=== PATIENT | female | born 1950 | race Caucasian/White ===

== ENCOUNTER → 2016-10-29 | Outpatient (CLI) | payer OTHER, MEDICARE ==
[~2016-10-29] MED LIST: ACET-1256 PO; AMOX500C3 PO; APIX1TAB3 PO; ASPI81TA21 PO; CLTP PO; DILT120C43 PO; LSX20 PO; MULT-513 PO; PRAV20TA PO; TRAM-10 PO; TSSP PO; WARF1TAB6 PO
--- NOTE | 2016-10-29 13:55 | MAMMOGRAPHY REPORT ---
BILATERAL DIGITAL SCREENING MAMMOGRAM WITH CAD: 10/29/2016 CLINICAL HISTORY: Routine screening. TECHNIQUE: Current study was also evaluated with a Computer Aided Detection (CAD) system. Bilateral CC and MLO and right XCCL views were obtained. COMPARISON: Comparison is made to exams dated: 10/28/2015 mammogram, 10/23/2014 mammogram, 08/22/2013 mamm ogram, 08/21/2012 mammogram, 08/19/2011 mammogram, and 08/17/2010 mammogram - [facility] BREAST COMPOSITION: The tissue of both breasts is heterogeneously dense, which may obscure small mas ses. FINDINGS: No suspicious masses, calcifications, or areas of architectural distortion are noted in ei ther breast. There has been no significant interval change compared to prior exams. Bilateral benign vascular calcifications are again noted. IMPRESSION: ACR BI-RADS CATEGORY 2: BENIGN There is no mammographic evidence of malignancy. A 1 year screening mammogram is recommended. The pa tient will receive written notification of the results. Approximately 10% of breast cancers are not detected with mammography. A negative mammographic report should not delay biopsy if a clinically suggestive mass is present. Elizabeth Espinoza M.D. ah/:10/29/2016 09:03:55 Edge Cutting Machine Operator: Hector RODRIGUEZ(R)(M), [facility] letter sent: Normal 1/2 BI-RADS Code: ACR BI-RADS Category 2: Benign
== END | disposition home or self-care (01) ==
LOC: C.MAMM 08:30
PROVIDERS: ATTEND Family Medicine
DX: Z12.31 Encounter for screening mammogram for malignant neoplasm of breast (principal)

== ENCOUNTER 2017-02-18 10:19 | Emergency (ER) | payer OTHER, MEDICARE ==
[~2017-02-18] VITALS: Ht 162.6 cm; Wt 60.0 kg
[~2017-02-18 10:19] MED LIST changes: -APIX1TAB3 PO; -DILT120C43 PO
[2017-02-18 10:30] VITALS: TEMP 36.8; Ht 162.6 cm; Wt 60.0 kg
[2017-02-18] MEDS ORDERED: DILT120C43 PO (10:43)
[2017-02-18] MEDS ORDERED: APIX1TAB3 PO (10:43)
[2017-02-18] MEDS ORDERED: KETOROLAC TROMETHAMINE 60 MG/2 ML VIAL IM STA (11:13)
[2017-02-18] MEDS ORDERED: TRAMADOL HCL 50 MG TAB PO STA (11:13)
--- NOTE | 2017-02-18 11:42 | DIAGNOSTIC IMAGING REPORT ---
LEFT KNEE 3 VIEWS HISTORY: Left knee pain. COMPARISON: None. FINDINGS: There is no fracture or dislocation. Mild thickening at the quadriceps tendon. No radiopaque foreign bodies. No significant knee effusion. IMPRESSION: 1. No fracture or dislocation within the left knee. 2. Mild thickening at the quadriceps tendon. This may represent a tendinopathy. Electronically signed by: Femi Russ M.D. 02/18/2017 11:40 AM Dictated Date/Time: 02/18/2017 11:39 AM
[2017-02-18] MEDS ORDERED: TRAM-10 PO (12:45)
--- NOTE | 2017-02-18 12:46 | EMERGENCY ROOM VISIT NOTE ---
ED Visit Note First contact with patient: 11:00 CHIEF COMPLAINT: Left knee pain this morning HISTORY OF PRESENT ILLNESS: Patient is a 67-year-old white female who presents to the emergency department for evaluation of left knee pain. She states that the pain woke her overnight. It was severe. She could not straighten the knee due to pain. She did not take any medications, nor apply any ice or heat. She had an elastic sleeve that she put on for a short time, but she states that it felt like the pain was worse and therefore she took it off. She reports she fell and landed on the flexed left knee at the beginning of the month, had a small abrasion, but otherwise was not particularly bothered by that injury. She notes pain over the entire knee, she is unable to localize it. It is worse when she tries to straighten or when she bears weight. She is able to ambulate , but she is limping. She rates her pain a 9/10. REVIEW OF SYSTEMS: Review of systems as per HPI. All other systems reviewed were negative. At least 6 systems reviewed. PMH: Electronic medical records are reviewed and summarized as above/below. See Problem List. SOCIAL HISTORY: Patient lives at home with her family. She is retired. Nonsmoker, denies alcohol use. PHYSICAL EXAM: Vital Signs: Reviewed Nurse's notes. MENTAL STATUS: Well- appearing, slightly uncomfortable 67-year-old white female was awake and alert and laying on the gurney in mild distress due to her knee pain. KNEE: Examination of the left knee notes mild generalized swelling, no erythema, abrasions or knee joint effusion palpable. There is no peripatellar tenderness , slight crepitus with range of motion. No reproducible joint line tenderness. She has discomfort when she extends fully, but is able to do so. She can actively flex to roughly 90 before she has pain. There is no gross ligamentous instability appreciated. Calf is soft and nontender. No popliteal fullness appreciated. Left lower extremity is neurovascularly intact. The patient walks with an antalgic gait. EMERGENCY DEPARTMENT COURSE: Patient was given an ice pack, given Toradol 60 mg IM and Ultram 50 mg orally. The x-rays were obtained and were largely unremarkable. The patient reported some relief of her pain on reassessment. X- ray findings were reviewed with her. She rated her pain a 1/10 at the time of discharge. She declined a knee immobilizer. She has crutches at home that she can use. She was wrapped with an Paulo wrap for support. She was encouraged to use Tylenol for discomfort and was given a prescription for tramadol. She has been told to avoid NSAIDs due to her valvular heart disease, she takes a dose of Aleve sparingly. She is established with orthopedics, and was encouraged to follow-up with them for further care and evaluation if her symptoms are not improving. Differential diagnoses entertained included sprain, meniscal tear, degenerative joint disease, gout/pseudogout, among others. LEFT KNEE 3 VIEWS HISTORY: Left knee pain. COMPARISON: None. FINDINGS: There is no fracture or dislocation. Mild thickening at the quadriceps tendon. No radiopaque foreign bodies. No significant knee effusion. IMPRESSION: 1. No fracture or dislocation within the left knee. 2. Mild thickening at the quadriceps tendon. This may represent a tendinopathy. Patient was reviewed in the [facility] Prescription Drug Monitoring Program, and there were no red flags noted. Blood pressure screening : Patient was found to have normal blood pressure on screening and does not require follow-up. Medication reconciliation: I attest that I have personally reviewed the patient' s current medication list. Problem List Medical Problems: (1) Acute respiratory failure Status: Resolved (2) Anemia Status: Resolved (3) Asthma Status: Chronic (4) Atrial fibrillation Status: Chronic (5) CHF (congestive heart failure) Permanent Comment: valvular heart disease; LVEF 50% by echo Status: Chronic (6) Dyslipidemia Status: Chronic (7) Pneumonia Status: Resolved (8) Valvular heart disease Permanent Comment: aortic regurgitation, mitral regurgitation, tricuspid regurgitation Status: Chronic Surgical Problems: (1) Status post aortic valve replacement Permanent Comment: repeat AVR with bioprosthetic valve by Dr. Drummond [facility] 02/06/12 Status: Resolved (2) Status post cholecystectomy Status: Chronic (3) Status post Ross procedure Permanent Comment: 2000 Status: Resolved Current/Historical Medications Scheduled Amoxicillin (Amoxil), 2,000 MG PO UD Apixaban (Eliquis), 5 MG PO BID Aspirin Enteric Coated (Ecotrin Or Generic), 81 MG PO DAILY Calcium/Vitamin D (Caltrate 600 Plus *), 1 TAB PO BID Diltiazem Hcl Coated Beads (Cartia Xt), 120 MG PO DAILY Multivitamins/Minerals (Mvi With Minerals), 1 TAB PO DAILY Pravastatin (Pravachol ), 40 MG PO HS Scheduled PRN Tramadol (Ultram), 1-2 TAB PO Q4H PRN for Pain Allergies Coded Allergies: Metoprolol (Verified Allergy, Intermediate, "PASSED OUT" AND LITTLE TROUBLE BREATHING, 02/18/17) Amiodarone (Unverified Allergy, Unknown, UNKNOWN, 02/18/17) Oxycodone (Verified Adverse Reaction, Intermediate, NAUSEA VOMITING, ) Propoxyphene (Verified Adverse Reaction, Intermediate, NAUSEA AND VOMITING , 02/18/17) Vital Signs Date Time Temp Pulse Resp B/P (MAP) Pulse Ox O2 Delivery O2 Flow Rate FiO2 02/18/17 13:00 84 20 138/75 98 Room Air 02/18/17 11:48 71 20 119/75 98 Room Air 02/18/17 10:30 36.8 69 18 126/75 96 Room Air Medications Administered Medications (Trade) Dose Ordered Sig/Jason Route Start Time Stop Time Status Last Admin Dose Admin Ketorolac Tromethamine (Toradol Inj) 60 mg NOW STAT IM 02/18/17 11:13 02/18/17 11:15 DC 02/18/17 11:47 60 MG Tramadol HCl (Ultram Tab) 50 mg NOW STAT PO 02/18/17 11:13 02/18/17 11:15 DC 02/18/17 11:43 50 MG Departure Information Impression Primary Impression: Left knee pain Prescriptions Tramadol (Ultram) 50 Mg Tab 1-2 TAB PO Q4H Y for Pain, #30 TAB For Initial Treatment Prov: Sandy Julio PA 02/18/17 Referrals Zuleyka Posada M.D. (PCP) Patient Instructions My [facility] Additional Instructions DO NOT drive, drink alcohol, operate machinery, or perform dangerous activities today. You were given medications in the ER that can affect your ability to safely function or operate a vehicle. Tramadol (Ultram) 50mg: Take 1-2 pills every four hours for breakthrough pain. Avoid alcohol, operating machinery or dangerous equipment, working on ladders or roofs, DRIVING, or situations where being under the influence may be dangerous. It is recommended to use an [id number] stool softener such as Colace, 100mg twice daily while taking this medication to avoid constipation. Acetaminophen(Tylenol) may be used for fever or pain. Use 1000mg every six hours as needed. Avoid using more than 3000mg in a 24 hour period. This medication can be taken if you need to drive, work, or perform activities which may be dangerous when taking narcotic pain medication. Ice compresses for 20 minutes at a time four times daily for 2-3 days. Use the Paulo wrap and your crutches as instructed. Rest and elevate your injury. Continue current medications. Return to the ER immediately for any numbness, tingling, severe pain, extreme swelling in the extremity or as needed. Follow-up with your family physician or with [facility] next week if your symptoms are not improving. Problem Qualifiers Primary Impression: Left knee pain Chronicity: acute Qualified Codes: M25.562 - Pain in left knee
--- NOTE | 2017-02-18 12:47 | EMERGENCY ROOM VISIT NOTE ---
ED Visit Note First contact with patient: 11:00 Patient seen and evaluated bedside after discussion with the nurse practitioner. Patient agreeable with plan. Isolated pain to the knee, no other signs or symptoms to suggest DVT, cellulitis, compartment syndrome. Patient agreeable with plan as discussed with physician assistant librarian, follow-up with orthopedics as an outpatient.
[2017-02-18 13:00] VITALS: BP 138/75; PULSE 84; O2SAT 98
== END 2017-02-18 13:05 | disposition home or self-care (01) ==
LOC: C.EDB 10:20
DX: M25.562 Pain in left knee (principal); I48.91 Unspecified atrial fibrillation; E78.5 Hyperlipidemia, unspecified; I50.9 Heart failure, unspecified; I51.9 Heart disease, unspecified; D64.9 Anemia, unspecified; J45.909 Unspecified asthma, uncomplicated; I35.8 Other nonrheumatic aortic valve disorders; Z79.82 Long term (current) use of aspirin; Z79.899 Other long term (current) drug therapy; Z90.49 Acquired absence of other specified parts of digestive tract; Z88.5 Allergy status to narcotic agent; Z88.8 Allergy status to other drugs, medicaments and biological substances

== ENCOUNTER → 2017-04-11 | Outpatient (CLI) | payer OTHER, MEDICARE ==
[~2017-04-11] MED LIST changes: -ACET-1256 PO; +APIX1TAB3 PO; +DILT120C43 PO; -LSX20 PO; -TSSP PO; -WARF1TAB6 PO
[2017-04-11 10:26] LABS: CHOLESTEROL/HDL RATIO 1.8
== END | disposition home or self-care (01) ==
LOC: C.LAB1850 08:00
PROVIDERS: ATTEND Internal Medicine Cardiovascular Disease
DX: E78.00 Pure hypercholesterolemia, unspecified (principal)

== ENCOUNTER 2017-06-10 09:19 | Emergency (ER) | payer OTHER, MEDICARE ==
[~2017-06-10] VITALS: Ht 162.6 cm; Wt 63.0 kg
[2017-06-10 09:20] VITALS: TEMP 36.9; O2SAT 99; Ht 162.6 cm; Wt 63.0 kg
[2017-06-10] MEDS ORDERED: SODIUM CHLORIDE 0.9% 1000ML 500 ML IV STA (09:38)
--- NOTE | 2017-06-10 09:46 | EMERGENCY ROOM VISIT NOTE ---
History Report prepared by Ac: Adrien Arias Under the Supervision of: Dr. Garett Ocampo M.D. First contact with patient: 09:35 Chief Complaint: RAPID HEART RATE Stated Complaint: RAPID HEART RATE, N/V/D History of Present Illness The patient is a 67 year old female who presents to the Emergency Room with complaints of a persistent rapid heart rate that she noticed when she woke up this morning at 0200, 7.5 hours prior to arrival. The patient states that she was also nauseated. She has a history of atrial fibrillation and is on Eliquis daily. She felt fine before she went to bed last night. The patient denies any tarry stools. 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 A total of 10 systems reviewed and were otherwise negative. Past Medical & Surgical Medical Problems: (1) Acute respiratory failure (2) Anemia (3) Asthma (4) Atrial fibrillation (5) CHF (congestive heart failure) (6) Dyslipidemia (7) Pneumonia (8) Valvular heart disease Surgical Problems: (1) Status post aortic valve replacement (2) Status post cholecystectomy (3) Status post Ross procedure Old medical records were reviewed. Nurse's notes were reviewed and I agree with. Family History Cancer Hypertension Social History Smoking Status: Never Smoker Alcohol Use: none Marital Status: Housing Status: lives with family Occupation Status: employed Current/Historical Medications Scheduled Amoxicillin (Amoxil), 2,000 MG PO UD Apixaban (Eliquis), 5 MG PO BID Aspirin Enteric Coated (Ecotrin Or Generic), 81 MG PO DAILY Calcium Carbonate-Vitamin D (Calcium 600 + D), 1 TAB PO BID Diltiazem Hcl Coated Beads (Cartia Xt), 120 MG PO DAILY Multivitamins/Minerals (Mvi With Minerals), 1 TAB PO DAILY Pravastatin Sodium (Pravachol), 40 MG PO DAILY Scheduled PRN Tramadol (Ultram), 1-2 TAB PO Q4H PRN for Pain Allergies Coded Allergies: Metoprolol (Verified Allergy, Intermediate, "PASSED OUT" AND LITTLE TROUBLE BREATHING, 06/10/17) Amiodarone (Unverified Allergy, Unknown, UNKNOWN, 06/10/17) Oxycodone (Verified Adverse Reaction, Intermediate, NAUSEA VOMITING, ) Propoxyphene (Verified Adverse Reaction, Intermediate, NAUSEA AND VOMITING , 06/10/17) Physical Exam Vital Signs Date Time Temp Pulse Resp B/P (MAP) Pulse Ox O2 Delivery O2 Flow Rate FiO2 06/10/17 11:00 85 16 134/78 99 Room Air 06/10/17 09:41 82 06/10/17 09:39 70 06/10/17 09:20 36.9 76 20 131/81 99 Room Air 06/10/17 09:20 99 Room Air 06/10/17 09:20 99 Room Air Physical Exam General: Non-ill appearing middle aged female in no acute distress. HEENT: Normal cephalic atraumatic. Pupils are equal round and reactive to light. Extraocular movements are intact. Oropharynx is pink with moist mucous membranes. No swelling of the mouth lips or tongue. Neck: Supple with a midline trachea. No meningeal signs or stiffness, no JVD or bruits. No Stridor. Chest: Clear to auscultation bilaterally. No wheezes or rhonchi. No increased work of breathing. Heart: Non-Tachycardic regular rate and irregularly irregular rhythm. Abdomen: Soft nontender, nondistended without rebound guarding or rigidity. Extremities: No cyanosis clubbing or edema. No calf tenderness or assymetry Spine/Back. Non tender to palpation. No CVA tenderness Skin: Good turgor without rashes. Neurologic exam: Cranial nerves two through 12 are intact. Motor and sensation are intact and symmetrical throughout. Medical Decision & Procedures ER Provider Diagnostic Interpretation: Radiology results as stated below per my review and radiologist interpretation: CHEST ONE VIEW PORTABLE HISTORY: Atypical CHEST PAIN COMPARISON: Chest 05/13/2014. FINDINGS: The heart remains mildly enlarged. Poststernotomy changes. Mild interstitial thickening which is likely chronic. No focal lung consolidations. No evidence for pulmonary edema. IMPRESSION: Stable mild cardiomegaly and interstitial thickening which is likely chronic. Electronically signed by: Femi Russ M.D. 06/10/2017 10:01 AM Dictated Date/Time: 06/10/2017 9:55 AM Laboratory Results 06/10/17 09:50 Red Blood Count 4.01, Mean Corpuscular Volume 93.5, Mean Corpuscular Hemoglobin 32.4, Mean Corpuscular Hemoglobin Concent 34.7, Mean Platelet Volume 9.9, Neutrophils (%) (Auto) 89.5, Lymphocytes (%) (Auto) 6.9, Monocytes (%) (Auto) 2.8, Eosinophils (%) (Auto) 0.4, Basophils (%) (Auto) 0.2, Neutrophils # (Auto) 9.72, Lymphocytes # (Auto) 0.75, Monocytes # (Auto) 0.30, Eosinophils # (Auto) 0.04, Basophils # (Auto) 0.02 06/10/17 09:50 Test 06/10/17 09:50 06/10/17 09:53 White Blood Count 10.85 K/uL (4.8-10.8) Red Blood Count 4.01 M/uL (4.2-5.4) Hemoglobin 13.0 g/dL (12.0-16.0) Hematocrit 37.5 % (37-47) Mean Corpuscular Volume 93.5 fL (80-100) Mean Corpuscular Hemoglobin 32.4 pg (25-34) Mean Corpuscular Hemoglobin Concent 34.7 g/dl (32-36) Platelet Count 171 K/uL (130-400) Mean Platelet Volume 9.9 fL (7.4-10.4) Neutrophils (%) (Auto) 89.5 % Lymphocytes (%) (Auto) 6.9 % Monocytes (%) (Auto) 2.8 % Eosinophils (%) (Auto) 0.4 % Basophils (%) (Auto) 0.2 % Neutrophils # (Auto) 9.72 K/uL (1.4-6.5) Lymphocytes # (Auto) 0.75 K/uL (1.2-3.4) Monocytes # (Auto) 0.30 K/uL (0.11-0.59) Eosinophils # (Auto) 0.04 K/uL (0-0.5) Basophils # (Auto) 0.02 K/uL (0-0.2) RDW Standard Deviation 45.4 fL (36.4-46.3) RDW Coefficient of Variation 13.3 % (11.5-14.5) Immature Granulocyte % (Auto) 0.2 % Immature Granulocyte # (Auto) 0.02 K/uL (0.00-0.02) Anion Gap 5.0 mmol/L (3-11) Est Creatinine Clear Calc Drug Dose 54.1 ml/min Estimated GFR () 80.5 Estimated GFR (Non- 69.4 BUN/Creatinine Ratio 25.2 (10-20) Calcium Level 9.1 mg/dl (8.5-10.1) Total Bilirubin 0.6 mg/dl (0.2-1) Direct Bilirubin 0.2 mg/dl (0-0.2) Aspartate Amino Transf (AST/SGOT) 24 U/L (15-37) Alanine Aminotransferase (ALT/SGPT) 21 U/L (12-78) Alkaline Phosphatase 116 U/L (45-117) Total Protein 7.6 gm/dl (6.4-8.2) Albumin 4.0 gm/dl (3.4-5.0) Lipase 109 U/L (73-393) Thyroid Stimulating Hormone (TSH) 0.418 uIu/ml (0.300-4.500) Bedside Troponin I < 0.030 ng/ml (0-0.045) Laboratory studies as stated above per my review. Medications Administered Medications (Trade) Dose Ordered Sig/Jason Route Start Time Stop Time Status Last Admin Dose Admin Sodium Chloride 500 ml @ 999 mls/hr Q31M STAT IV 06/10/17 09:38 06/10/17 10:08 DC 06/10/17 09:38 999 MLS/HR ECG Indication: tachycardia Rate (beats per minute): 77 Rhythm: atrial fibrillation Findings: no acute ischemic change Comparison ECG Date: 02/22/2015 Change: Lateral T-wave abnormalities have improved. Patient's electrocardiogram interpreted by me. ED Course 0937: Past medical records reviewed. The patient was evaluated in room A10, and a complete history and physical examination were performed. 0938: Ordered Sodium Chloride 500 mL @ 999 mL/hr IV. 1000: I checked on the patient at this time she is doing well. 1057: The patient is stable and resting in bed. 1118: Upon reevaluation, the patient is feeling well. I discussed the results and treatment plan with her. She verbalized agreement of the treatment plan. The patient was discharged home. Medical Decision Differential Diagnosis includes; A-fib, arrhythmia, acute coronary syndrome, CHF , electrolyte or metabolic abnormality. This patient comes in as described above she has a history of chronic A. fib and is on anticoagulation she felt like her heart was fast last night and it was in the 90s. She had no chest pain syncope presyncope shortness of breath or any other symptoms she feels well at present she had some nausea vomiting diarrhea. IV access established. EKG shows rate controlled A. fib without ischemic change.s she has no acute electrolyte or metabolic abnormality. She has nothing to suggest acute coronary syndrome and her cardiac biomarkers are not elevated. chest x-ray was unremarkable without any evidence to suggest heart failure, pneumonia, or pneumothorax. She is feeling better and would like to be discharged to home. She should rest and drink plenty of fluids. It may have been that this was related to dehydration. She denies that she missed any medications. She follow with her doctor Tuesday for recheck or return here over the weekend if symptoms worsen. The patient and her are happy the plan and she was discharged to home. Impression Primary Impression: Palpitations Additional Impression: A-fib Scribe Attestation The scribe's documentation has been prepared under my direction and personally reviewed by me in its entirety. I confirm that the note above accurately reflects all work, treatment, procedures, and medical decision making performed by me. Departure Information Dispostion Home / Self-Care Referrals Zuleyka Posada M.D. (PCP) Forms HOME CARE DOCUMENTATION FORM, IMPORTANT VISIT INFORMATION, WORK / SCHOOL INSTRUCTIONS Patient Instructions My [facility] Problem Qualifiers
--- NOTE | 2017-06-10 10:02 | DIAGNOSTIC IMAGING REPORT ---
CHEST ONE VIEW PORTABLE HISTORY: Atypical CHEST PAIN COMPARISON: Chest 05/13/2014. FINDINGS: The heart remains mildly enlarged. Poststernotomy changes. Mild interstitial thickening which is likely chronic. No focal lung consolidations. No evidence for pulmonary edema. IMPRESSION: Stable mild cardiomegaly and interstitial thickening which is likely chronic. Electronically signed by: Femi Russ M.D. 06/10/2017 10:01 AM Dictated Date/Time: 06/10/2017 9:55 AM
[2017-06-10 10:04] LABS: BASO % 0.2 %; BASO ABS # 0.02 K/uL (0-0.2); EOS % 0.4 %; EOS ABS # 0.04 K/uL (0-0.5); HEMATOCRIT 37.5 % (37-47); IG# 0.02 K/uL (0.00-0.02); LYMPH % 6.9 %; LYMPH ABS # 0.75 K/uL (1.2-3.4); MEAN CELL VOLUME 93.5 fL (80-100); MEAN CORPUSCULAR HEMOGLOBIN 32.4 pg (25-34); MEAN CORPUSCULAR HGB CONC 34.7 g/dl (32-36); MEAN PLATELET VOLUME 9.9 fL (7.4-10.4); MONO % 2.8 %; NEUT % 89.5 %; NEUT ABS # 9.72 K/uL (1.4-6.5); PLATELET COUNT 171 K/uL (130-400); RED CELL DISTRIBUTION WIDTH CV 13.3 % (11.5-14.5); RED CELL DISTRIBUTION WIDTH SD 45.4 fL (36.4-46.3); WHITE BLOOD COUNT 10.85 K/uL (4.8-10.8)
[2017-06-10] MEDS ORDERED: PRAV40TA PO (10:23)
[2017-06-10] MEDS ORDERED: CALC-20 PO (10:23)
[2017-06-10 10:25] LABS: CALCIUM 9.1 mg/dl (8.5-10.1); CREATININE 0.86 mg/dl (0.60-1.20); POTASSIUM 3.6 mmol/L (3.5-5.1)
[2017-06-10 11:00] VITALS: BP 134/78; PULSE 85; O2SAT 99
[2017-06-10 11:05] LABS: TOTAL PROTEIN 7.6 gm/dl (6.4-8.2)
== END 2017-06-10 11:35 | disposition home or self-care (01) ==
LOC: C.EDB 09:20 → C.EDA 11:35
DX: R00.2 Palpitations (principal); I48.91 Unspecified atrial fibrillation; D64.9 Anemia, unspecified; J45.909 Unspecified asthma, uncomplicated; I50.9 Heart failure, unspecified; E78.5 Hyperlipidemia, unspecified; Z87.01 Personal history of pneumonia (recurrent); I38 Endocarditis, valve unspecified; Z95.2 Presence of prosthetic heart valve; Z80.9 Family history of malignant neoplasm, unspecified; Z82.49 Family history of ischemic heart disease and other diseases of the circulatory system; Z79.01 Long term (current) use of anticoagulants; Z79.899 Other long term (current) drug therapy

== ENCOUNTER 2024-03-19 07:43 | Inpatient (IN) ==
--- NOTE | 2024-03-19 08:11 | Emergency Department Note ---
Impression & Plan Rectal bleeding, Abdominal cramping, Colitis, Coagulopathy ED Provider Note NAME: NOE ROQUE AGE: 74 SEX: F : 1950 ARRIVES VIA: Walk-In INFORMANT: [Patient] ED PROVIDER(S): [Agustin Silva MD] CHIEF COMPLAINT: Rectal bleeding HISTORY OF PRESENT ILLNESS: The patient is a 74-year-old female who states that 2 weeks ago, she started with a cough and some upper respiratory congestion. She saw her doctor's office and her COVID test was negative. She was told that her illness was likely viral. 5 days ago, the patient called her doctor's office again as she was not any better. She was prescribed Augmentin. Within 1 dose of Augmentin, the patient had diarrhea. She was then switched to amoxicillin twice a day. The patient states that she continued to have some looser stool but things were better over the weekend. This morning, she began having liquidy stool and the last several bouts of diarrhea were mixed with bright red blood. She has some lower crampy abdominal pain that she thinks may be gas pain. No fever, no vomiting although she has noticed some nausea. The patient states that she believes that the respiratory part of things seems to be improving as she has not coughed in about 12 to 24 hours. Of note, the patient has a history of A-fib, she is on Eliquis. PMHx/PSHx/Social Hx: See Below PHYSICAL EXAM: GENERAL: Patient is in no acute distress. HEENT: No acute trauma, normocephalic atraumatic, mucous membranes dry, no nasal congestion. NECK: No stridor, no adenopathy, no meningismus, trachea is midline. LUNGS: A few scattered wheezes heard, no respiratory distress. No crackles. HEART: 3/6 systolic murmur, mildly tachycardic. Slightly irregular rhythm. ABDOMEN: Soft, bowel sounds are hyperactive. She is mildly diffusely tender to the lower abdomen bilaterally. There is no distention. EXTREMITIES: No cyanosis, full range of motion of all the joints without pain or difficulty. NEUROLOGIC: Oriented x 3, no acute motor or sensory deficits, no focal weakness. SKIN: No jaundice, no diaphoresis. DIFFERENTIAL DIAGNOSIS: Medication reaction, colitis, diverticulitis, coagulopathy, anemia, C. difficile colitis, among others. EMERGENCY DEPARTMENT PROCEDURES: MEDICAL DECISION MAKING: There is no leukocytosis or concerning anemia. There is a normal platelet count. No coagulopathy. Potassium slightly low but not in need of emergent correction. No renal failure. No concerning liver enzyme elevation. No evidence for pancreatitis. Urinalysis does not show infection or hematuria. Stool BioFire testing was negative. Stool C. difficile testing was negative. Chest x-ray did not show pneumonia or pneumothorax. Abdominal and pelvis CT showed colitis. On exam, the patient was not toxic or febrile. She complained of some occasional abdominal cramping. The patient received IV saline, 1 L. She was given IV Tylenol for pain. The patient is on Eliquis, she presents with rectal bleeding. She was found to have colitis by CT imaging. Given the coagulopathy, given the rectal bleeding and colitis findings, hospitalization is indicated. I spoke with the patient and case management. The on-call hospitalist was consulted. Currently, the cause for her colitis is unclear. Prior/Outside records/notes reviewed: None ECG per my interpretation: Indication was tachycardia. The ECG shows what appears to be atrial fibrillation with a rate of 99. There is some diffuse nonspecific ST change. There is no acute ST elevation. There is poor R wave progression. No PVCs. The QTc is 415. Continuous Cardiac Monitoring per my interpretation: An order was placed for continuous cardiac monitoring. The monitor shows a rate of 101 with atrial fibrillation. Imaging/x-ray results per my interpretation: Chest x-ray does not show mediastinal widening, pneumonia or pneumothorax. Chronic Medical/Social conditions affecting care: Advanced age, history of Eliquis use. Care/Management discussed with: Case management, the on-call hospitalist. Level of care consideration(s): After review of the information above and other included data: --I believe the patient requires escalation of care to admission DISPOSITION: Admission Past Med/Surg History Problem List (Updated 03/19/24 @ 14:23 by Agustin Silva MD) Coagulopathy (Acute) Colitis (Acute) Abdominal cramping (Acute) Rectal bleeding (Acute) URI (upper respiratory infection) Ischemic colitis H/O tricuspid valve annuloplasty 2010 and 2013 Mild tricuspid regurgitation (Acute) Left knee pain (Acute) History of prosthetic aortic valve Aortic insufficiency (Acute) Need for SBE (subacute bacterial endocarditis) prophylaxis Aortic valvular disorder Pulmonary valve disorder Hypercholesterolemia PAF (paroxysmal atrial fibrillation) (Acute) follows w/ Dr Rangel; last visit 02/2023 Medical History Osteoarthritis low back Amiodarone pulmonary toxicity hx Surgical History History of esophagogastroduodenoscopy (EGD) Hx of colonoscopy History of cardiac radiofrequency ablation ~2002 Hx of aortic aneurysm repair 04/2014 [facility] Hx of cholecystectomy (2008) H/O aortic root repair H/O pulmonic valve replacement 2010 and 2013 S/P tonsillectomy History of open heart surgery 2000 S/P carpal tunnel release Family History Father Myocardial infarction Mother Stomach cancer Graves disease Denies family history of Ovarian cancer Prostate cancer Breast cancer Colorectal cancer Social History Smoking Status: Never smoker Tobacco Type: Cigarettes Age Started Using Tobacco: 15; Age Quit Using Tobacco: 21; packs per day: 0.5; Second Hand Exposure: No; Do You Dip or Chew Tobacco: No; Hx Alcohol Use: No Hx Substance Use: No Preferred Language: Czech Communication Ability: Effective Visual Impairment: No Limitations Hearing Ability: Normal News Operations Manager Required: No Beliefs That Will Affect Care: None marital status: Current Living Situation: Spouse current occupational status: retired 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 Feels Safe at Home: Yes Childhood Exposure to Second-Hand Smoke: Yes Diet: regular Dental Care, Regularly: Yes Physical Activity Frequency: Daily Physical Activity Frequency Comment: 2.4 MILES EVERYDAY WALKING, takes her about 1 hour Seatbelt Use: always Sunscreen Use: Yes (sometimes ) Assistive Devices: Glasses Allergies Allergies Allergy/AdvReac Type Severity Reaction Status Date / Time amiodarone Allergy Unknown ACUTE RESP Verified 03/09/24 10:54 FAILURE metoprolol AdvReac Intermediate "PASSED Verified 03/09/24 10:54 OUT" AND LITTLE TROUBLE BREATHING oxycodone AdvReac Intermediate NAUSEA Verified 03/09/24 10:54 VOMITING propoxyphene AdvReac Intermediate NAUSEA AND Verified 03/09/24 10:54 VOMITING Home Meds Home Medications Medication Instructions Recorded Confirmed calcium 600 mg (as 1 tab PO BID 02/21/19 03/19/24 carbonate)-vitamin D3 5 mcg (200 unit) tablet multivitamin with minerals 1 tab PO TID 10/24/19 03/19/24 (Hair,Skin and Nails tablet) aspirin 81 mg tablet,delayed 81 mg PO DAILY 04/02/22 03/19/24 release glucosamine-chondroitin 250 mg-200 1 tab PO BID 10/07/23 03/19/24 mg tablet (Osteo Bi-Flex) Previous Rx's Medication Instructions Recorded diltiazem HCl 120 mg 120 mg PO DAILY #90 caps 07/05/22 capsule,extended release 24 hr apixaban 5 mg tablet (Eliquis) 5 mg PO BID #180 tabs 06/06/23 amoxicillin 500 mg capsule 2,000 mg (4 x 500 mg) PO ONCE PRN 03/09/24 DENTAL APPOINTMENTS #4 caps pravastatin 40 mg tablet 40 mg PO HS #90 tabs 03/14/24 amoxicillin 500 mg capsule 500 mg PO BID 10 days #20 caps 03/15/24 Results & Data (ED) Vital Signs Vital Signs - 24 hr 03/19/24 07:47 03/19/24 08:25 03/19/24 08:27 Temperature 36.8 C Temperature Source Oral Pulse Rate 101 H 97 H 97 H Pulse Rate from SpO2 Sensor 97 H Respiratory Rate 18 25 H 26 H Blood Pressure 174/100 H Blood Pressure Mean 124 Blood Pressure Position Sitting Pulse Oximetry 98 94 96 Oxygen Delivery Method Room Air Room Air Sepsis Recent Fever Within 48 Hours No Sepsis New/Unexplained Change in Mental Status No Sepsis Action Taken by Nursing No Action Required 03/19/24 08:30 03/19/24 08:30 03/19/24 08:36 Temperature Temperature Source Pulse Rate 94 H Pulse Rate from SpO2 Sensor Respiratory Rate Blood Pressure 158/102 H 158/102 H Blood Pressure Mean 123 123 Blood Pressure Position Pulse Oximetry Oxygen Delivery Method Sepsis Recent Fever Within 48 Hours Sepsis New/Unexplained Change in Mental Status Sepsis Action Taken by Nursing 03/19/24 08:36 03/19/24 08:47 03/19/24 08:53 Temperature Temperature Source Pulse Rate 96 H 89 95 H Pulse Rate from SpO2 Sensor 97 H 89 95 H Respiratory Rate 26 H 19 14 Blood Pressure Blood Pressure Mean Blood Pressure Position Pulse Oximetry 97 95 96 Oxygen Delivery Method Sepsis Recent Fever Within 48 Hours Sepsis New/Unexplained Change in Mental Status Sepsis Action Taken by Nursing 03/19/24 09:30 03/19/24 09:30 03/19/24 09:30 Temperature Temperature Source Pulse Rate Pulse Rate from SpO2 Sensor Respiratory Rate Blood Pressure 151/91 H 151/91 H 151/91 H Blood Pressure Mean 111 111 111 Blood Pressure Position Pulse Oximetry Oxygen Delivery Method Sepsis Recent Fever Within 48 Hours Sepsis New/Unexplained Change in Mental Status Sepsis Action Taken by Nursing 03/19/24 09:32 03/19/24 09:54 03/19/24 09:54 Temperature Temperature Source Pulse Rate 83 Pulse Rate from SpO2 Sensor 86 Respiratory Rate 24 Blood Pressure 160/99 H 160/99 H Blood Pressure Mean 122 122 Blood Pressure Position Pulse Oximetry 94 Oxygen Delivery Method Sepsis Recent Fever Within 48 Hours Sepsis New/Unexplained Change in Mental Status Sepsis Action Taken by Nursing 03/19/24 09:59 03/19/24 10:00 03/19/24 10:00 Temperature Temperature Source Pulse Rate 83 Pulse Rate from SpO2 Sensor 88 Respiratory Rate 13 Blood Pressure 159/87 H 159/87 H Blood Pressure Mean 115 115 Blood Pressure Position Pulse Oximetry 95 Oxygen Delivery Method Sepsis Recent Fever Within 48 Hours Sepsis New/Unexplained Change in Mental Status Sepsis Action Taken by Nursing 03/19/24 10:00 03/19/24 10:05 03/19/24 10:15 Temperature Temperature Source Pulse Rate 98 H 95 H Pulse Rate from SpO2 Sensor 96 H 98 H Respiratory Rate 18 25 H Blood Pressure 159/87 H Blood Pressure Mean 115 Blood Pressure Position Pulse Oximetry 94 95 Oxygen Delivery Method Sepsis Recent Fever Within 48 Hours Sepsis New/Unexplained Change in Mental Status Sepsis Action Taken by Nursing 03/19/24 10:18 03/19/24 10:30 03/19/24 10:30 Temperature Temperature Source Pulse Rate 103 H Pulse Rate from SpO2 Sensor 102 H Respiratory Rate 22 Blood Pressure 168/101 H 168/101 H Blood Pressure Mean 135 135 Blood Pressure Position Pulse Oximetry 97 Oxygen Delivery Method Sepsis Recent Fever Within 48 Hours Sepsis New/Unexplained Change in Mental Status Sepsis Action Taken by Nursing 03/19/24 10:30 03/19/24 10:33 03/19/24 10:42 Temperature Temperature Source Pulse Rate 98 H 93 H Pulse Rate from SpO2 Sensor 92 H 90 Respiratory Rate 24 23 Blood Pressure 168/101 H Blood Pressure Mean 135 Blood Pressure Position Pulse Oximetry 96 94 Oxygen Delivery Method Sepsis Recent Fever Within 48 Hours Sepsis New/Unexplained Change in Mental Status Sepsis Action Taken by Nursing 03/19/24 10:54 03/19/24 11:12 Temperature Temperature Source Pulse Rate 98 H 97 H Pulse Rate from SpO2 Sensor 98 H 92 H Respiratory Rate 25 H 20 Blood Pressure Blood Pressure Mean Blood Pressure Position Pulse Oximetry 97 95 Oxygen Delivery Method Sepsis Recent Fever Within 48 Hours Sepsis New/Unexplained Change in Mental Status Sepsis Action Taken by Assisted Medications Current Medication List: was personally reviewed by me Laboratory Data Attestation: I reviewed the patient's lab results. 03/19/24 08:29 03/19/24 08:29 Lab Results 03/19/24 03/19/24 03/19/24 Range/Units 08:21 08:29 09:10 WBC 10.17 (4.8-10.8) K/ul RBC 4.40 (4.20-5.40) M/uL Hgb 13.7 (12.0-16.0) g/dl Hct 40.9 (37.0-47.0) % MCV 93.0 (80.0-100.0) fL MCH 31.1 (25.0-34.0) pg MCHC 33.5 (32.0-36.0) g/dL RDW Std Deviation 48.1 H (36.4-46.3) fL RDW Coeff of Herb 14.3 (11.5-14.5) % Plt Count 234 (130-400) K/uL MPV 9.6 (9.4-12.4) fL Immature Gran % (Auto) 0.4 % Neut % (Auto) 82.8 % Lymph % (Auto) 9.7 % Gillespie % (Auto) 3.9 % Eos % (Auto) 2.8 % Baso % (Auto) 0.4 % Neut # (Auto) 8.42 H (1.40-6.50) K/uL Lymph # (Auto) 0.99 L (1.20-3.40) K/uL Gillespie # (Auto) 0.40 (0.11-0.59) K/uL Eos # (Auto) 0.28 (0.00-0.50) K/uL Baso # (Auto) 0.04 (0.00-0.20) K/uL Immature Gran # (Auto) 0.04 (0.01-0.20) K/uL PT 10.9 (9.0-12.0) Seconds INR 1.0 (0.9-1.1) APTT 26 (21-31) Seconds PTT Ratio 1.0 Sodium 142 (136-145) mmol/L Potassium 3.4 L (3.5-5.1) mmol/L Chloride 101 (98-107) mmol/L Carbon Dioxide 34 H (21-32) mmol/L Anion Gap 7 (3-11) BUN 19 (6-23) mg/dl Creatinine 0.67 (0.6-1.2) mg/dl Est Cr Clr Drug Dosing 57.4 ml/min eGFR 91.09 BUN/Creatinine Ratio 28.4 H (10-20) Glucose 97 (70-99(Fasting)) mg/dl Lactate (0.4-2.0) mmol/L Calcium 9.8 (8.6-10.3) mg/dl Magnesium 1.8 (1.7-2.4) mg/dl Total Bilirubin 0.6 (0.2-1.0) mg/dl AST 23 (13-39) U/L ALT 13 (7-52) U/L Alkaline Phosphatase 144 H (34-104) U/L C-Reactive Protein < 0.50 (0-0.5) mg/dl Total Protein 8.0 (6.0-8.3) gm/dl Albumin 4.6 (3.4-5.0) gm/dl Globulin 3.4 (2.5-4.0) gm/dl Albumin/Globulin Ratio 1.4 (0.9-2) Lipase 24 (11-82) U/L Urine Color Yellow Urine Appearance Clear (Clear) Urine pH 7.5 (4.5-7.5) Ur Specific Safford 1.010 (1.000-1.030) Urine Protein Negative (Negative) Urine Glucose (UA) Negative (Negative) Urine Ketones Negative (Negative) Urine Blood Negative (Negative) Urine Nitrite Negative (Negative) Urine Bilirubin Negative (Negative) Urine Urobilinogen Negative (Negative) Ur Leukocyte Esterase Negative (Negative) Stl C. cayetanensis PCR Not Detected (NotDetected) Stool Rotavirus A PCR Not Detected (NotDetected) Stl Adenov F 40/41 PCR Not Detected (NotDetected) Stool Astrovirus (PCR) Not Detected (NotDetected) Stool Campylobacter PCR Not Detected (NotDetected) Stl C. diff Tox B Gene Negative Cdiff Gene (Neg) Stool Cryptosporidium PCR Not Detected (NotDetected) Stl E.coli Shiga Tox PCR Not Detected (NotDetected) Stl Enterotoxigenic E PCR Not Detected (NotDetected) Stool EPEC (PCR) Not Detected (NotDetected) Stool EAEC (PCR) Not Detected (NotDetected) Stl E. histolytica PCR Not Detected (NotDetected) Stool Giardia Lamblia PCR Not Detected (NotDetected) Stool Salmonella PCR Not Detected (NotDetected) Stool Sapovirus (PCR) Not Detected (NotDetected) Stl P. shigelloides PCR Not Detected (NotDetected) Stl Shigella/EIEC PCR Not Detected (NotDetected) St Y.enterocolitica PCR Not Detected (NotDetected) Stool Vibrio (PCR) Not Detected (NotDetected) Stl Vibrio cholerae PCR Not Detected (NotDetected) Stl Norovirus GI/GII PCR Not Detected (NotDetected) 03/19/24 Range/Units 10:54 WBC (4.8-10.8) K/ul RBC (4.20-5.40) M/uL Hgb (12.0-16.0) g/dl Hct (37.0-47.0) % MCV (80.0-100.0) fL MCH (25.0-34.0) pg MCHC (32.0-36.0) g/dL RDW Std Deviation (36.4-46.3) fL RDW Coeff of Herb (11.5-14.5) % Plt Count (130-400) K/uL MPV (9.4-12.4) fL Immature Gran % (Auto) % Neut % (Auto) % Lymph % (Auto) % Gillespie % (Auto) % Eos % (Auto) % Baso % (Auto) % Neut # (Auto) (1.40-6.50) K/uL Lymph # (Auto) (1.20-3.40) K/uL Gillespie # (Auto) (0.11-0.59) K/uL Eos # (Auto) (0.00-0.50) K/uL Baso # (Auto) (0.00-0.20) K/uL Immature Gran # (Auto) (0.01-0.20) K/uL PT (9.0-12.0) Seconds INR (0.9-1.1) APTT (21-31) Seconds PTT Ratio Sodium (136-145) mmol/L Potassium (3.5-5.1) mmol/L Chloride (98-107) mmol/L Carbon Dioxide (21-32) mmol/L Anion Gap (3-11) BUN (6-23) mg/dl Creatinine (0.6-1.2) mg/dl Est Cr Clr Drug Dosing ml/min eGFR BUN/Creatinine Ratio (10-20) Glucose (70-99(Fasting)) mg/dl Lactate 0.8 (0.4-2.0) mmol/L Calcium (8.6-10.3) mg/dl Magnesium (1.7-2.4) mg/dl Total Bilirubin (0.2-1.0) mg/dl AST (13-39) U/L ALT (7-52) U/L Alkaline Phosphatase (34-104) U/L C-Reactive Protein (0-0.5) mg/dl Total Protein (6.0-8.3) gm/dl Albumin (3.4-5.0) gm/dl Globulin (2.5-4.0) gm/dl Albumin/Globulin Ratio (0.9-2) Lipase (11-82) U/L Urine Color Urine Appearance (Clear) Urine pH (4.5-7.5) Ur Specific Safford (1.000-1.030) Urine Protein (Negative) Urine Glucose (UA) (Negative) Urine Ketones (Negative) Urine Blood (Negative) Urine Nitrite (Negative) Urine Bilirubin (Negative) Urine Urobilinogen (Negative) Ur Leukocyte Esterase (Negative) Stl C. cayetanensis PCR (NotDetected) Stool Rotavirus A PCR (NotDetected) Stl Adenov F 40/41 PCR (NotDetected) Stool Astrovirus (PCR) (NotDetected) Stool Campylobacter PCR (NotDetected) Stl C. diff Tox B Gene (Neg) Stool Cryptosporidium PCR (NotDetected) Stl E.coli Shiga Tox PCR (NotDetected) Stl Enterotoxigenic E PCR (NotDetected) Stool EPEC (PCR) (NotDetected) Stool EAEC (PCR) (NotDetected) Stl E. histolytica PCR (NotDetected) Stool Giardia Lamblia PCR (NotDetected) Stool Salmonella PCR (NotDetected) Stool Sapovirus (PCR) (NotDetected) Stl P. shigelloides PCR (NotDetected) Stl Shigella/EIEC PCR (NotDetected) St Y.enterocolitica PCR (NotDetected) Stool Vibrio (PCR) (NotDetected) Stl Vibrio cholerae PCR (NotDetected) Stl Norovirus GI/GII PCR (NotDetected) Administered Medications Discontinued Medications Sodium Chloride (Nss) 1,000 mls @ 999 mls/hr IV .Q1H1M ONE Stop: 03/19/24 09:04 Last Infusion: 03/19/24 09:42 Dose: Infused Documented By: Admin: 03/19/24 08:27 Dose: 999 mls/hr Documented By: MMF Acetaminophen (Ofirmev) 1,000 mg in 100 mls @ 400 mls/hr IV NOW STA Stop: 03/19/24 08:18 Last Infusion: 03/19/24 09:00 Dose: Infused Documented By: Admin: 03/19/24 08:32 Dose: 400 mls/hr Documented By: MMF Ioversol (Optiray 320 100ml) 94 ml IV ONCE ONE Stop: 03/19/24 09:44 Last Admin: 03/19/24 09:44 Dose: 94 ml Documented By: DESMOND Imaging Data Radiologist's Impression: Abdomen/Pelvis CT 03/19/24 07:53 CT OF THE ABDOMEN AND PELVIS WITH CONTRAST CLINICAL HISTORY: Abdominal pain. Bloody diarrhea. COMPARISON STUDY: CT of the abdomen and pelvis January 10, 2009. TECHNIQUE: Following IV administration of 94 mL of Optiray, axial images of the abdomen and pelvis were obtained from the lung bases to the proximal femurs. Images were reviewed in the axial, sagittal, and coronal planes. IV contrast was administered without complication. Automated exposure control was utilized for the study. A dose lowering technique was utilized adhering to the principles of ALARA. CT DOSE: 617.88 mGy.cm FINDINGS: The heart is moderately enlarged. Groundglass opacities with mosaic attenuation within the lung bases are noted. Multiple associated nodular densities are present, including a 6 mm right lower lobe nodular density on image 35 of 333. No pneumatosis, free air or portal venous gas is present. The IVC and hepatic veins are dilated. A few hypodense hepatic lesions favor cysts. Mild dilatation of the common bile duct is likely related to cholecystectomy. Spleen, adrenal glands and pancreas are unremarkable. There is no hydronephrosis. Several right renal calculi measure up to 4 mm. There are no ureteral calculi. There is no hydronephrosis. There is no evidence for a bowel obstruction. Moderate circumferential wall thickening with pericolonic stranding involving the transverse colon, splenic flexure of the colon and proximal to mid descending colon is noted. There is no free air. There are no fluid collections. There is mild plaque within the abdominal aorta. Mesenteric vessels are grossly patent. IMPRESSION: 1. Moderate circumferential wall thickening with associated pericolonic stranding involving the transverse colon, splenic flexure of the colon and proximal to mid descending colon consistent with a colitis. Although nonspecific, this distribution raises the possibility of ischemic colitis. No free air. No abscess. 2. Groundglass opacities and mosaic attenuation within the lower lungs which could reflect air trapping or an infectious process. Indeterminate associated nodular densities measuring up to 6 mm. A follow-up chest CT in one to 2 months to ensure resolution is recommended. 3. No bowel obstruction. 4. Right nephrolithiasis. ACT 112: Positive. There are findings on this exam that require communication between the performing entity and the patient following Patient Test Result Information Act ([place] Act 112) guidelines. Electronically signed by: Anthony Ballard M.D. 03/19/2024 10:03 AM Chest X-Ray 03/19/24 08:04 XR chest 1V portable HISTORY: 74 years-old Female cough COMPARISON: 08/08/2023 TECHNIQUE: AP view of the chest FINDINGS: Cardiac silhouette is enlarged. Median sternotomy. No pneumothorax, pleural effusion, airspace consolidation or pulmonary edema. Bones of the chest appear grossly intact. Chronic interstitial coarsening. IMPRESSION: Cardiomegaly without acute process. ACT 112: Negative or not required by law. The above report was generated using voice recognition software. It may contain grammatical, syntax or spelling errors. Electronically signed by: Kwasi Haney M.D. 03/19/2024 8:29 AM Discharge Plan Visit Data Chief Complaint: Rectal Bleed Stated Complaint: DIARRHEA, NOW BLOODY STOOL ED Provider: Agustin Silva Discharge Problem: Rectal bleeding, Abdominal cramping, Colitis, Coagulopathy Patient Disposition: Admitted As Inpatient Condition: Fair Discharge Instructions Interventions: ED Discharge Assessment Last Done: 03/19/24 13:41
[2024-03-19] MEDS: SODIUM CHLORIDE 0.9% 1,000 ML IV ONE (08:27)
--- NOTE | 2024-03-19 08:31 | XRay Report ---
XR chest 1V portable HISTORY: 74 years-old Female cough COMPARISON: 08/08/2023 TECHNIQUE: AP view of the chest FINDINGS: Cardiac silhouette is enlarged. Median sternotomy. No pneumothorax, pleural effusion, airspace consol idation or pulmonary edema. Bones of the chest appear grossly intact. Chronic interstitial coarsening . IMPRESSION: Cardiomegaly without acute process. ACT 112: Negative or not required by law. The above report was generated using voice recognition software. It may contain grammatical, syntax o r spelling errors. Electronically signed by: Kwasi Haney M.D. 03/19/2024 8:29 AM
[2024-03-19] MEDS: ACETAMINOPHEN 1,000 MG/100 ML VIAL IV STA (08:32)
[2024-03-19 08:51] LABS: Basophils # (auto) 0.04 K/uL (0.00-0.20); Basophils % (auto) 0.4 %; Eosinophils # (auto) 0.28 K/uL (0.00-0.50); Eosinophils % (auto) 2.8 %; Hematocrit (blood only) 40.9 % (37.0-47.0); Hemoglobin 13.7 g/dl (12.0-16.0); Immature Granulocytes # (auto) 0.04 K/uL (0.01-0.20); Immature Granulocytes % (auto) 0.4 %; Lymphocytes # (auto) 0.99 K/uL (1.20-3.40); Lymphocytes % (auto) 9.7 %; Mean Corpuscular Hemoglobin 31.1 pg (25.0-34.0); Mean Corpuscular Hgb Conc 33.5 g/dL (32.0-36.0); Mean Platelet Volume 9.6 fL (9.4-12.4); Monocytes % (auto) 3.9 %; Neutrophils # (auto) 8.42 K/uL (1.40-6.50); Neutrophils % (auto) 82.8 %; Platelet Count 234 K/uL (130-400); RDW Coefficient of Variation 14.3 % (11.5-14.5); RDW Standard Deviation 48.1 fL (36.4-46.3); White Blood Count 10.17 K/ul (4.8-10.8)
[2024-03-19 09:08] LABS: Alanine Aminotransferase 13 U/L (7-52); Albumin Globulin Ratio 1.4 (0.9-2); Albumin Level 4.6 gm/dl (3.4-5.0); Alkaline Phosphatase 144 U/L (34-104); Anion Gap 7 (3-11); Aspartate Aminotransferase 23 U/L (13-39); BUN Creatinine Ratio 28.4 (10-20); Bilirubin,Total 0.6 mg/dl (0.2-1.0); Blood Urea Nitrogen 19 mg/dl (6-23); Calcium 9.8 mg/dl (8.6-10.3); Carbon Dioxide 34 mmol/L (21-32); Chloride 101 mmol/L (98-107); Creatinine Clr Calc Pharmacy 57.4 ml/min; Globulin 3.4 gm/dl (2.5-4.0); Glucose 97 mg/dl (70-99(Fasting)); Lipase 24 U/L (11-82); Magnesium 1.8 mg/dl (1.7-2.4); Potassium 3.4 mmol/L (3.5-5.1); Sodium 142 mmol/L (136-145)
[2024-03-19 09:25] LABS: Partial Thromboplastin Time 26 Seconds (21-31); Prothrombin Time 10.9 Seconds (9.0-12.0)
[2024-03-19] MEDS: OPTIRAY 320 100ml IV ONE (09:44)
--- NOTE | 2024-03-19 10:04 | CT Scan Report ---
CT OF THE ABDOMEN AND PELVIS WITH CONTRAST CLINICAL HISTORY: Abdominal pain. Bloody diarrhea. COMPARISON STUDY: CT of the abdomen and pelvis January 10, 2009. TECHNIQUE: Following IV administration of 94 mL of Optiray, axial images of the abdomen and pelvis we re obtained from the lung bases to the proximal femurs. Images were reviewed in the axial, sagittal, and coronal planes. IV contrast was administered without complication. Automated exposure control wa s utilized for the study. A dose lowering technique was utilized adhering to the principles of ALARA . CT DOSE: 617.88 mGy.cm FINDINGS: The heart is moderately enlarged. Groundglass opacities with mosaic attenuation within the lung bases are noted. Multiple associated nodular densities are present, including a 6 mm right lower lobe nodular density on image 35 of 333. No pneumatosis, free air or portal venous gas is present. T he IVC and hepatic veins are dilated. A few hypodense hepatic lesions favor cysts. Mild dilatation of the common bile duct is likely related to cholecystectomy. Spleen, adrenal glands and pancreas are u nremarkable. There is no hydronephrosis. Several right renal calculi measure up to 4 mm. There are no ureteral calculi. There is no hydronephrosis. There is no evidence for a bowel obstruction. Moderate circumferential wall thickening with pericolonic stranding involving the transverse colon, splenic f lexure of the colon and proximal to mid descending colon is noted. There is no free air. There are no fluid collections. There is mild plaque within the abdominal aorta. Mesenteric vessels are grossly p atent. IMPRESSION: 1. Moderate circumferential wall thickening with associated pericolonic stranding involving the trans verse colon, splenic flexure of the colon and proximal to mid descending colon consistent with a coli tis. Although nonspecific, this distribution raises the possibility of ischemic colitis. No free air. No abscess. 2. Groundglass opacities and mosaic attenuation within the lower lungs which could reflect air trappi ng or an infectious process. Indeterminate associated nodular densities measuring up to 6 mm. A follo w-up chest CT in one to 2 months to ensure resolution is recommended. 3. No bowel obstruction. 4. Right nephrolithiasis. ACT 112: Positive. There are findings on this exam that require communication between the performing entity and the patient following Patient Test Result Information Act ([place] Act 112) guidelines. Electronically signed by: Anthony Ballard M.D. 03/19/2024 10:03 AM
[2024-03-19 10:27] LABS: Appearance Urine Clear (Clear); Bilirubin Urine Negative (Negative); Blood Urine Negative (Negative); Color Urine Yellow; Glucose Urine UA Negative (Negative); Ketones Urine Negative (Negative); Leukocyte Esterase Urine Negative (Negative); Nitrite Urine Negative (Negative); Protein Urine Negative (Negative); Urobilinogen Urine Negative (Negative); pH Urine 7.5 (4.5-7.5)
--- NOTE | 2024-03-19 11:16 | History & Physical Report ---
Date of Service March 19, 2024 Assessment & Plan (1) Ischemic colitis: Plan: 74 y/o F PMHx Afib on Eliquis, presenting with hematochezia x 1 day following ongoing diarrhea x 5 days related to recent URI tx with antibiotics (Augmentin, Amoxicillin). No rectal pain, never happened before - Admit - Recent illness resulting in diarrhea and decreased oral intake, BRBPR x 1 day with lower abdominal pain - CBC- H&H 13.7/40.9, CMP- potassium 3.4, CO2 34, BUN WNL, alk phos 144 - CRP WNL, lactate 0.8, pending Pro-García - C. difficile negative, pending remaining stool studies - CTAP- moderate wall thickening and pericolonic stranding of transverse colon/splenic flexure of colon/proximal to mid descending colon consistent with colitis, no bowel obstruction, right nephrolithiasis - Colonoscopy 03/2023- nonbleeding internal hemorrhoids - Clear liquids - No IV fluids started at this time secondary to shortage, encourage p.o. fluid intake - No antibiotics at this time; +/- broad-spectrum antibiotic (Unasyn) if clinically deteriorates or labs indicate necessity of starting antibiotic (2) PAF (paroxysmal atrial fibrillation): Plan: History of PAF on Eliquis twice daily and aspirin daily; H/o bioprosthetic aortic valve, tricuspid valve angioplasty ring, bioprosthetic pulmonary valve - Irregularly irregular on exam today - EKG on admission showed A-fib, rate 99 - Most recent echo (11/2023) showed EF 65-70%, mild LVH, borderline dilated RV mildly reduced systolic function, severe biatrial dilation, bioprosthetic AV, moderate mitral regurgitation, tricuspid valve angioplasty ring with severe TR, bioprosthetic pulmonic valve with stenosis, mild pulmonary hypertension, A-fib. - Anticoagulated with Eliquis; hold in setting of bleeding x 1 day - Rate controlled with diltiazem (takes at pm) - Continue to monitor (3) URI (upper respiratory infection): Plan: Ongoing x 2 weeks; trialed on Augmentin starting in diarrhea, adjusted to amoxicillin twice daily also resulting in diarrhea and hematochezia. - Continuing to have PND, coughing - No SOB, no chest pain; Wheezing on exam - CXR: Cardiomegaly without acute process - Albuterol nebulizer as needed for wheezing/SOB - Pt reports occasional choking with inhalers ? trial of neb can be used if needed and pt agreeable Plan HLD- continue pravastatin nightly Hypokalemia- 3.4 at admission, diarrhea x 5 days, replace with KCl 20mEq po x 1 Dispo: Admit VTE prophylaxis: SCDs for now, will restart a home dose of Eliquis depending on clinical image Code: Full Admission and Anticipated Discharge Date Admission Date: 03/19/2024 History of Present Illness Chief Complaint: Hematochezia, URI symptoms Primary Care Provider: Omaira Mahajan MD Patient is a 74-year-old female presenting for hematochezia. ED course: CBC- WBC 10.17, H&H WNL; CMP-potassium 3.4, CO2 34, BUN 19, alk phos 144; C. difficile negative; CXR cardiomegaly without acute process; CTAP with moderate circumferential wall thickening of transverse colon/splenic flexure/proximal to mid descending colon consistent with colitis, groundglass opacities in lower lungs, right nephrolithiasis, no obstruction. Provided with acetaminophen and NSS in ED. Patient 74-year-old female w/ PMHx PAF on anticoagulation (Eliquis) and multiple valvular disorders presented to ED for hematochezia that has waxed and waned over the past 5 days since being on 1 dose of Augmentin, and then respective doses of amoxicillin for URI. States that she had gone to her PCP for ongoing upper respiratory infection symptoms prescribed Augmentin. They are taking 1 dose, noticed that she had loose stool that she requested a change in antibiotic. Was then transition to amoxicillin twice daily and continued to have loose stool that initially improved over the weekend. Awoke at 0300 this a.m. with abdominal pain, took Pepto-Bismol. Awoke again this a.m. around 0430 and that is when she noticed the blood in her stool. Notes that she continues to have streaking of blood in the stool as well as some mucus. Mild right and left lower quadrant abdominal pain that she feels is "gas pain" and she has some relief when passing gas. Reports nausea early in course, however not ongoing and no vomiting. Denies fever/chills, chest pain, shortness of breath, constipation, nausea/vomiting, weakness, fatigue, or additional changes. Please see Dr. Vicente's attestation for adjustment/changes to treatment plan. Allergies Allergy/AdvReac Type Severity Reaction Status Date / Time amiodarone Allergy Unknown ACUTE RESP Verified 03/09/24 10:54 FAILURE metoprolol AdvReac Intermediate "PASSED Verified 03/09/24 10:54 OUT" AND LITTLE TROUBLE BREATHING oxycodone AdvReac Intermediate NAUSEA Verified 03/09/24 10:54 VOMITING propoxyphene AdvReac Intermediate NAUSEA AND Verified 03/09/24 10:54 VOMITING Home Medications Medication Instructions Recorded Confirmed Type calcium 600 mg (as 1 tab PO BID 02/21/19 03/19/24 History carbonate)-vitamin D3 5 mcg (200 unit) tablet multivitamin with minerals 1 tab PO TID 10/24/19 03/19/24 History (Hair,Skin and Nails tablet) aspirin 81 mg tablet,delayed 81 mg PO DAILY 04/02/22 03/19/24 History release diltiazem HCl 120 mg 120 mg PO DAILY #90 caps 07/05/22 03/19/24 Rx capsule,extended release 24 hr apixaban 5 mg tablet (Eliquis) 5 mg PO BID #180 tabs 06/06/23 03/19/24 Rx glucosamine-chondroitin 250 mg-200 1 tab PO BID 10/07/23 03/19/24 History mg tablet (Osteo Bi-Flex) amoxicillin 500 mg capsule 2,000 mg (4 x 500 mg) PO ONCE PRN 03/09/24 03/19/24 Rx DENTAL APPOINTMENTS #4 caps pravastatin 40 mg tablet 40 mg PO HS #90 tabs 03/14/24 03/19/24 Rx amoxicillin 500 mg capsule 500 mg PO BID 10 days #20 caps 03/15/24 03/19/24 Rx Past Med/Surg History Problem List (Updated 03/19/24 @ 11:53 by Virgie Douglas PA-C) URI (upper respiratory infection) Ischemic colitis H/O tricuspid valve annuloplasty 2010 and 2013 Mild tricuspid regurgitation (Acute) Left knee pain (Acute) History of prosthetic aortic valve Aortic insufficiency (Acute) Need for SBE (subacute bacterial endocarditis) prophylaxis Aortic valvular disorder Pulmonary valve disorder Hypercholesterolemia PAF (paroxysmal atrial fibrillation) (Acute) follows w/ Dr Rangel; last visit 02/2023 Medical History Osteoarthritis low back Amiodarone pulmonary toxicity hx Surgical History History of esophagogastroduodenoscopy (EGD) Hx of colonoscopy History of cardiac radiofrequency ablation ~2002 Hx of aortic aneurysm repair 04/2014 [facility] Hx of cholecystectomy (2008) H/O aortic root repair H/O pulmonic valve replacement 2010 and 2013 S/P tonsillectomy History of open heart surgery 2000 S/P carpal tunnel release Family History Father Myocardial infarction Mother Stomach cancer Graves disease Denies family history of Ovarian cancer Prostate cancer Breast cancer Colorectal cancer Social History Smoking Status: Never smoker Tobacco Type: Cigarettes Age Started Using Tobacco: 15; Age Quit Using Tobacco: 21; packs per day: 0.5; Second Hand Exposure: No; Do You Dip or Chew Tobacco: No; Hx Alcohol Use: No Hx Substance Use: No Preferred Language: Chadian Communication Ability: Effective Visual Impairment: No Limitations Hearing Ability: Normal 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 Beliefs That Will Affect Care: None marital status: Current Living Situation: Spouse current occupational status: retired 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 Skin: Warm and dry, without rashes or lesions. No cyanosis or clubbing Head: Normocephalic, atraumatic Eyes: PERRL, conjunctivae clear, sclera non-icteric; EOM intact ENT: External ear and ear canal without swelling; nose atraumatic; wearing mask Neck: Supple, no LAD; no JVD Cardio: Tachycardic, irregularly irregular rhythm, systolic murmur at LUSB, no G/R Resp: Chest wall symmetric, normal respiratory effort; No respiratory distress, no rales or rhonchi, bilateral lower lobe wheezing Abdomen: Soft, symmetric, slight abdominal tenderness throughout lower abdomen; No masses or hepatosplenomegaly MSK: No deformities, strength equal and symmetric; Pulses palpable and equal; No edema. Neuro: Awake, alert; Muscle strength 5/5 bilaterally in UE/LE; Sensation intact bilaterally; CN intact Psych: Appropriate mood and affect; good judgement and insight. Results & Data Results & Data Vital Signs (Past 12 Hours) Vital Signs Temp Pulse Resp BP Pulse Ox O2 Del Method 03/19/24 10:54 98 H 25 H 97 03/19/24 10:42 93 H 23 94 03/19/24 10:33 98 H 24 96 03/19/24 10:30 168/101 H 03/19/24 10:30 168/101 H 03/19/24 10:30 168/101 H 03/19/24 10:18 103 H 22 97 03/19/24 10:15 95 H 25 H 95 03/19/24 10:05 98 H 18 94 03/19/24 10:00 159/87 H 03/19/24 10:00 159/87 H 03/19/24 10:00 159/87 H 03/19/24 09:59 83 13 95 03/19/24 09:54 160/99 H 03/19/24 09:54 160/99 H 03/19/24 09:32 83 24 94 03/19/24 09:30 151/91 H 03/19/24 09:30 151/91 H 03/19/24 09:30 151/91 H 03/19/24 08:53 95 H 14 96 03/19/24 08:47 89 19 95 03/19/24 08:36 96 H 26 H 97 03/19/24 08:36 94 H 03/19/24 08:30 158/102 H 03/19/24 08:30 158/102 H 03/19/24 08:27 97 H 26 H 96 03/19/24 08:25 97 H 25 H 94 Room Air 03/19/24 07:47 36.8 C 101 H 18 174/100 H 98 Room Air Laboratory Results Lab Results 10/03/19/24 03/19/24 Range/Units 08:21 08:29 09:10 WBC 10.17 (4.8-10.8) K/ul RBC 4.40 (4.20-5.40) M/uL Hgb 13.7 (12.0-16.0) g/dl Hct 40.9 (37.0-47.0) % MCV 93.0 (80.0-100.0) fL MCH 31.1 (25.0-34.0) pg MCHC 33.5 (32.0-36.0) g/dL RDW Std Deviation 48.1 H (36.4-46.3) fL RDW Coeff of Herb 14.3 (11.5-14.5) % Plt Count 234 (130-400) K/uL MPV 9.6 (9.4-12.4) fL Immature Gran % (Auto) 0.4 % Neut % (Auto) 82.8 % Lymph % (Auto) 9.7 % [place] % (Auto) 3.9 % Eos % (Auto) 2.8 % Baso % (Auto) 0.4 % Neut # (Auto) 8.42 H (1.40-6.50) K/uL Lymph # (Auto) 0.99 L (1.20-3.40) K/uL [place] # (Auto) 0.40 (0.11-0.59) K/uL Eos # (Auto) 0.28 (0.00-0.50) K/uL Baso # (Auto) 0.04 (0.00-0.20) K/uL Immature Gran # (Auto) 0.04 (0.01-0.20) K/uL PT 10.9 (9.0-12.0) Seconds INR 1.0 (0.9-1.1) APTT 26 (21-31) Seconds PTT Ratio 1.0 Sodium 142 (136-145) mmol/L Potassium 3.4 L (3.5-5.1) mmol/L Chloride 101 (98-107) mmol/L Carbon Dioxide 34 H (21-32) mmol/L Anion Gap 7 (3-11) BUN 19 (6-23) mg/dl Creatinine 0.67 (0.6-1.2) mg/dl Est Cr Clr Drug Dosing 57.4 ml/min eGFR 91.09 BUN/Creatinine Ratio 28.4 H (10-20) Glucose 97 (70-99(Fasting)) mg/dl Lactate (0.4-2.0) mmol/L Calcium 9.8 (8.6-10.3) mg/dl Magnesium 1.8 (1.7-2.4) mg/dl Total Bilirubin 0.6 (0.2-1.0) mg/dl AST 23 (13-39) U/L ALT 13 (7-52) U/L Alkaline Phosphatase 144 H (34-104) U/L C-Reactive Protein < 0.50 (0-0.5) mg/dl Total Protein 8.0 (6.0-8.3) gm/dl Albumin 4.6 (3.4-5.0) gm/dl Globulin 3.4 (2.5-4.0) gm/dl Albumin/Globulin Ratio 1.4 (0.9-2) Lipase 24 (11-82) U/L Urine Color Yellow Urine Appearance Clear (Clear) Urine pH 7.5 (4.5-7.5) Ur Specific [place] 1.010 (1.000-1.030) Urine Protein Negative (Negative) Urine Glucose (UA) Negative (Negative) Urine Ketones Negative (Negative) Urine Blood Negative (Negative) Urine Nitrite Negative (Negative) Urine Bilirubin Negative (Negative) Urine Urobilinogen Negative (Negative) Ur Leukocyte Esterase Negative (Negative) Stl C. diff Tox B Gene Negative Cdiff Gene (Neg) 03/19/24 Range/Units 10:54 WBC (4.8-10.8) K/ul RBC (4.20-5.40) M/uL Hgb (12.0-16.0) g/dl Hct (37.0-47.0) % MCV (80.0-100.0) fL MCH (25.0-34.0) pg MCHC (32.0-36.0) g/dL RDW Std Deviation (36.4-46.3) fL RDW Coeff of Herb (11.5-14.5) % Plt Count (130-400) K/uL MPV (9.4-12.4) fL Immature Gran % (Auto) % Neut % (Auto) % Lymph % (Auto) % [place] % (Auto) % Eos % (Auto) % Baso % (Auto) % Neut # (Auto) (1.40-6.50) K/uL Lymph # (Auto) (1.20-3.40) K/uL [place] # (Auto) (0.11-0.59) K/uL Eos # (Auto) (0.00-0.50) K/uL Baso # (Auto) (0.00-0.20) K/uL Immature Gran # (Auto) (0.01-0.20) K/uL PT (9.0-12.0) Seconds INR (0.9-1.1) APTT (21-31) Seconds PTT Ratio Sodium (136-145) mmol/L Potassium (3.5-5.1) mmol/L Chloride (98-107) mmol/L Carbon Dioxide (21-32) mmol/L Anion Gap (3-11) BUN (6-23) mg/dl Creatinine (0.6-1.2) mg/dl Est Cr Clr Drug Dosing ml/min eGFR BUN/Creatinine Ratio (10-20) Glucose (70-99(Fasting)) mg/dl Lactate 0.8 (0.4-2.0) mmol/L Calcium (8.6-10.3) mg/dl Magnesium (1.7-2.4) mg/dl Total Bilirubin (0.2-1.0) mg/dl AST (13-39) U/L ALT (7-52) U/L Alkaline Phosphatase (34-104) U/L C-Reactive Protein (0-0.5) mg/dl Total Protein (6.0-8.3) gm/dl Albumin (3.4-5.0) gm/dl Globulin (2.5-4.0) gm/dl Albumin/Globulin Ratio (0.9-2) Lipase (11-82) U/L Urine Color Urine Appearance (Clear) Urine pH (4.5-7.5) Ur Specific [place] (1.000-1.030) Urine Protein (Negative) Urine Glucose (UA) (Negative) Urine Ketones (Negative) Urine Blood (Negative) Urine Nitrite (Negative) Urine Bilirubin (Negative) Urine Urobilinogen (Negative) Ur Leukocyte Esterase (Negative) Stl C. diff Tox B Gene (Neg) Diagnostic Findings Abdomen/Pelvis CT 03/19/24 07:53 CT OF THE ABDOMEN AND PELVIS WITH CONTRAST CLINICAL HISTORY: Abdominal pain. Bloody diarrhea. COMPARISON STUDY: CT of the abdomen and pelvis January 10, 2009. TECHNIQUE: Following IV administration of 94 mL of Optiray, axial images of the abdomen and pelvis were obtained from the lung bases to the proximal femurs. Images were reviewed in the axial, sagittal, and coronal planes. IV contrast was administered without complication. Automated exposure control was utilized for the study. A dose lowering technique was utilized adhering to the principles of ALARA. CT DOSE: 617.88 mGy.cm FINDINGS: The heart is moderately enlarged. Groundglass opacities with mosaic attenuation within the lung bases are noted. Multiple associated nodular densities are present, including a 6 mm right lower lobe nodular density on image 35 of 333. No pneumatosis, free air or portal venous gas is present. The IVC and hepatic veins are dilated. A few hypodense hepatic lesions favor cysts. Mild dilatation of the common bile duct is likely related to cholecystectomy. Spleen, adrenal glands and pancreas are unremarkable. There is no hydronephrosis. Several right renal calculi measure up to 4 mm. There are no ureteral calculi. There is no hydronephrosis. There is no evidence for a bowel obstruction. Moderate circumferential wall thickening with pericolonic stranding involving the transverse colon, splenic flexure of the colon and proximal to mid descending colon is noted. There is no free air. There are no fluid collections. There is mild plaque within the abdominal aorta. Mesenteric vessels are grossly patent. IMPRESSION: 1. Moderate circumferential wall thickening with associated pericolonic stranding involving the transverse colon, splenic flexure of the colon and proximal to mid descending colon consistent with a colitis. Although nonspecific, this distribution raises the possibility of ischemic colitis. No free air. No abscess. 2. Groundglass opacities and mosaic attenuation within the lower lungs which could reflect air trapping or an infectious process. Indeterminate associated nodular densities measuring up to 6 mm. A follow-up chest CT in one to 2 months to ensure resolution is recommended. 3. No bowel obstruction. 4. Right nephrolithiasis. ACT 112: Positive. There are findings on this exam that require communication between the performing entity and the patient following Patient Test Result Information Act ([place] Act 112) guidelines. Electronically signed by: Anthony Ballard M.D. 03/19/2024 10:03 AM Chest X-Ray 03/19/24 08:04 XR chest 1V portable HISTORY: 74 years-old Female cough COMPARISON: 08/08/2023 TECHNIQUE: AP view of the chest FINDINGS: Cardiac silhouette is enlarged. Median sternotomy. No pneumothorax, pleural effusion, airspace consolidation or pulmonary edema. Bones of the chest appear grossly intact. Chronic interstitial coarsening. IMPRESSION: Cardiomegaly without acute process. ACT 112: Negative or not required by law. The above report was generated using voice recognition software. It may contain grammatical, syntax or spelling errors. Electronically signed by: Kwasi Haney M.D. 03/19/2024 8:29 AM Code Status & VTE Plan Code Status Full Supervising Physician Co-Signing Physician Notes Patient seen and examined, chart reviewed, case discussed with Virgie Douglas PA-C and I agree with the assessment and plan as above except as otherwise noted Labs and images reviewed Patient is a 74-year-old female with recent upper respiratory infection treated with Augmentin and then transitioned to amoxicillin due to diarrhea as an outpatient presents with diarrhea and hematochezia. C. difficile testing is negative, stool PCR is pending. CTA/P with contrast does not show active extravasation bleeding but does show pericolonic stranding of the transverse colon, splenic flexure, and mid to proximal descending colon consistent with colitis and is suspicious for ischemic colitis and distribution. No abscess or free air is noted. Patient is anticoagulated for history of paroxysmal A-fib. She is in A-fib on admission. She has been chest pain-free. Due to acute medic easier Eliquis temporarily held x 24 hours. No indication for transfusion, hemoglobin is normal. In setting of critical IV fluid shortage oral liquids encouraged. She is not septic appearing, and is not hypotensive. Is mildly tachycardic. Lactate, procalcitonin, CRP added on admission. Borderline upper limit of normal white count, venous typical white count is normally much lower around 45. Given that she did complete a 5 day course of abx with a normal procalcitonin, normal white count, and improving respiratory symptoms and negative BioFire we will defer antibiotics however if she is clinically worseni ng, becomes febrile, or is uptrending markers of infection then can cover clinically at this time. Abdomen is mildly tender to palpation but without focal tenderness, rebound, guarding, or rigidity on exam. Patient is alert and oriented and appears nontoxic at the bedside. PG Care Time/CCT Total # of Minutes Spent Total Time Spent with Patient: Total time spent is greater than 50% in coordination of care (as documented) at patient's floor/unit and/or counseling patient: Coding Level of Care Code 04907 INT INP/OBS CARE 2/55MIN Diagnoses Ischemic colitis K55.9 PAF (paroxysmal atrial fibrillation) I48.0 URI (upper respiratory infection) J06.9 Time Spent (min) 60
[2024-03-19 11:21] LABS: C Reactive Protein < 0.50 mg/dl (0-0.5)
[2024-03-19 11:59] LABS: Adenovirus F 40/41 PCR Not Detected (NotDetected); Astrovirus PCR Not Detected (NotDetected); Campylobacter PCR Not Detected (NotDetected); Cryptosporidium PCR Not Detected (NotDetected); Cyclospora cayetanensis PCR Not Detected (NotDetected); Entamoeba histolytica PCR Not Detected (NotDetected); Enteroaggregative E.coli(EAEC) Not Detected (NotDetected); Enteropathogenic E.coli (EPEC) Not Detected (NotDetected); Enterotoxigenic E.coli (ETEC) Not Detected (NotDetected); Giardia lamblia PCR Not Detected (NotDetected); Norovirus GI/GII PCR Not Detected (NotDetected); Plesiomonas shigelloides PCR Not Detected (NotDetected); Rotavirus A PCR Not Detected (NotDetected); Salmonella PCR Not Detected (NotDetected); Sapovirus PCR Not Detected (NotDetected); Shiga-like Toxin E.coli (STEC) Not Detected (NotDetected); Shigella/Enteroinvasive E.coli Not Detected (NotDetected); Vibrio cholerae PCR Not Detected (NotDetected); Vibrio species PCR Not Detected (NotDetected); Yersinia enterocolitica PCR Not Detected (NotDetected)
--- NOTE | 2024-03-19 12:52 | Electrocardiogram Report ---
Test Reason : Blood Pressure : */* mmHG Vent. Rate : 99 BPM Atrial Rate : * BPM P-R Int : * ms QRS Dur : 92 ms QT Int : 324 ms P-R-T Axes : * 79 69 degrees QTcB Int : 415 ms Atrial fibrillation Abnormal ECG When compared with ECG of 02-Apr-2022 18:59, QRS duration has decreased Nonspecific T wave abnormality now evident in Inferior leads Confirmed by Tee Callejas ([id number]) on 03/19/2024 12:51:35 PM Referred By: REFERRED SELF Confirmed By: Tee Callejas
[2024-03-19] MEDS ORDERED: ALBUTEROL 0.5% NEB SOLN 2.5 MG/0.5 ML VIAL NEB PRN (13:41)
[2024-03-19] MEDS ORDERED: POLYETHYLENE (MIRALAX) 17 GM PACK PO PRN (13:41)
[2024-03-19] MEDS ORDERED: ACETAMINOPHEN 325 MG TAB PO PRN (13:41)
[2024-03-19] MEDS: ONDANSETRON INJ 2 MG/ML 2 ML VIAL IV PRN (14:24)
[2024-03-19] MEDS: POTASSIUM CHLORIDE CRTAB 20 MEQ TABCR PO ONE (14:24)
[2024-03-19] MEDS: PROCHLORPERAZINE MALEATE 5 MG TAB PO SCH (17:04)
[2024-03-19] MEDS ORDERED: METOCLOPRAMIDE HCL INJ 5 MG/ML 2 ML VIAL IV PRN (18:32)
[2024-03-19] MEDS: dilTIAZem HCL 120 MG CAPCR PO SCH (21:32)
[2024-03-19] MEDS: PRAVASTATIN SOD 40 MG TAB PO SCH (21:32)
[2024-03-20 06:06] LABS: Hematocrit (blood only) 38.1 % (37.0-47.0); Hemoglobin 12.8 g/dl (12.0-16.0); Mean Corpuscular Hemoglobin 30.9 pg (25.0-34.0); Mean Corpuscular Hgb Conc 33.6 g/dL (32.0-36.0); Mean Platelet Volume 9.7 fL (9.4-12.4); Platelet Count 221 K/uL (130-400); RDW Coefficient of Variation 14.5 % (11.5-14.5); RDW Standard Deviation 49.1 fL (36.4-46.3); Red Blood Count 4.14 M/uL (4.20-5.40); White Blood Count 9.73 K/ul (4.8-10.8)
[2024-03-20 06:23] LABS: Creatinine Clr Calc Pharmacy 56.7 ml/min; Potassium 3.8 mmol/L (3.5-5.1)
--- NOTE | 2024-03-20 08:10 | Hospitalist Progress Note ---
Date of Service March 20, 2024 Assessment & Plan (1) Colitis: Plan: 74 y/o F PMHx Afib on Eliquis, presenting with hematochezia x 1 day following ongoing diarrhea x 5 days related to recent URI tx with antibiotics (Augmentin, Amoxicillin). No rectal pain, never happened before - Recent illness resulting in diarrhea and decreased oral intake, BRBPR x 1 day with lower abdominal pain - C. difficile negative, all others neg - CTAP- moderate wall thickening and pericolonic stranding of transverse colon/splenic flexure of colon/proximal to mid descending colon consistent with colitis, no bowel obstruction, right nephrolithiasis - Colonoscopy 03/2023- nonbleeding internal hemorrhoids - Clear liquids, advance as tolerated - No IV fluids started at this time secondary to shortage, tolerating clear liquids - No antibiotics at this time; +/- broad-spectrum antibiotic (Unasyn) if clinically deteriorates or labs indicate necessity of starting antibiotic (2) PAF (paroxysmal atrial fibrillation): Plan: History of PAF on Eliquis twice daily and aspirin daily; H/o bioprosthetic aortic valve, tricuspid valve angioplasty ring, bioprosthetic pulmonary valve - EKG on admission showed A-fib, rate 99 - Most recent echo (11/2023) showed EF 65-70%, mild LVH, borderline dilated RV mildly reduced systolic function, severe biatrial dilation, bioprosthetic AV, moderate mitral regurgitation, tricuspid valve angioplasty ring with severe TR, bioprosthetic pulmonic valve with stenosis, mild pulmonary hypertension, A- fib. - On Eliquis, held in setting of bleeding - Rate controlled with diltiazem (takes at pm) - Continue to monitor (3) URI (upper respiratory infection): Plan: Ongoing x 2 weeks; trialed on Augmentin starting in diarrhea, adjusted to amoxicillin twice daily also resulting in diarrhea and hematochezia. - Continuing to have PND, coughing - No SOB, no chest pain; Wheezing on exam - CXR: Cardiomegaly without acute process - Pt reports occasional choking with inhalers ? trial of neb can be used if needed and pt agreeable Plan HLD- continue pravastatin nightly Dispo: Admit VTE prophylaxis: SCDs for now, will restart a home dose of Eliquis depending on clinical image Code: Full Admission and Anticipated Discharge Date Admission Date: March 19, 2024 Supervising Physician Co-Signing Physician Notes I personally examined the patient and verified gray points of history and exam, discussed case, and agree with decision making and plan documented by Dr. French. Patient resting comfortably in bed on exam, snacking on water ice, drinking agustina doc. She reports feeling much better. On exam, patient appears nontoxic, lungs clear b/l to auscultation, regular rate and rhythm, no abdominal tenderness to deep palpation, bowel sounds present,no acute distress. Patient reports bowel movements now brown and watery, she denied BRBPR. Reviewed CT scan which shows colitis, in the setting of recent antibiotic use, patient's presentation does not support ischemic colitis at present. Patient will advance diet as tolerated. Lactobacillus acidophilus added to daily regimen. Nausea has improved. Will continue to monitor for clinical improvement. Subjective Patient seen and evaluated at bedside this morning. No acute events overnight. States still having episodes of watery diarrhea with hematochezia. Mild tachycardia, asymptomatic. Tolerating clear liquids this am Review of Systems Review of Systems: reviewed, per HPI Physical Exam Physical Exam: Constitutional: [well-appearing, no acute distress] HEENT: [NCAT, no conjunctival injection] CV: [regular rhythm, no murmur appreciated, extremities well-perfused, no LE edema] Resp: [CTABL, no wheezes/rales/rhonchi appreciated, no increased work of breathing] GI: [soft, nondistended, nontender, BS normoactive] MSK: [no gross deformities appreciated] Skin: [warm, dry, no rash appreciated] Neuro: [alert, oriented, no focal neurologic deficit appreciated] Results & Data Results & Data Vital Signs (Past 12 Hours) Vital Signs Temp Pulse Pulse Resp BP Pulse Ox O2 Del Method 03/20/24 07:18 99 H 03/20/24 07:08 36.9 C 93 H 20 117/75 94 Room Air 03/20/24 03:52 36.8 C 98 H 18 140/84 95 Room Air 03/19/24 23:26 107 H 03/19/24 23:00 36.7 C 100 H 18 138/86 96 Room Air 03/19/24 22:39 Room Air Resident Activity Tracking Resident Involvement: Resident Care Provided Care Provided: Adult Hospital Medicine
[2024-03-20] MEDS ORDERED: Nursing to Pharmacy Communication SCH (08:15)
[2024-03-20] MEDS: ADVANCED PROBIOTIC 625 MG CAPSULE PO SCH (10:19)
[2024-03-20] MEDS: dilTIAZem HCL 120 MG CAPCR PO SCH (18:02)
[2024-03-21 06:47] LABS: Hematocrit (blood only) 36.8 % (37.0-47.0); Hemoglobin 12.3 g/dl (12.0-16.0); Mean Corpuscular Hemoglobin 31.1 pg (25.0-34.0); Mean Corpuscular Hgb Conc 33.4 g/dL (32.0-36.0); Mean Corpuscular Volume 93.2 fL (80.0-100.0); Mean Platelet Volume 9.8 fL (9.4-12.4); Platelet Count 198 K/uL (130-400); RDW Coefficient of Variation 14.3 % (11.5-14.5); RDW Standard Deviation 48.8 fL (36.4-46.3); Red Blood Count 3.95 M/uL (4.20-5.40); White Blood Count 6.67 K/ul (4.8-10.8)
[2024-03-21 07:03] LABS: BUN Creatinine Ratio 23.1 (10-20); Calcium 8.9 mg/dl (8.6-10.3); Creatinine Clr Calc Pharmacy 64.6 ml/min; Potassium 3.6 mmol/L (3.5-5.1)
--- NOTE | 2024-03-21 13:14 | Hospitalist Progress Note ---
Date of Service March 21, 2024 Assessment & Plan (1) Colitis: Plan: 74 y/o F PMHx Afib on Eliquis, presenting with hematochezia x 1 day following ongoing diarrhea x 5 days related to recent URI tx with antibiotics (Augmentin, Amoxicillin). No rectal pain, never happened before - Recent illness resulting in diarrhea and decreased oral intake, BRBPR x 1 day with lower abdominal pain - C. difficile negative, all other stool studies neg - CTAP- moderate wall thickening and pericolonic stranding of transverse colon/splenic flexure of colon/proximal to mid descending colon consistent with colitis, no bowel obstruction, right nephrolithiasis - Colonoscopy 03/2023- nonbleeding internal hemorrhoids - Diet advance to heart healthy full - No IV fluids started at this time secondary to shortage, tolerating clear liquids - No antibiotics at this time; +/- broad-spectrum antibiotic (Unasyn) if clinically deteriorates or labs indicate necessity of starting antibiotic (2) PAF (paroxysmal atrial fibrillation): Plan: History of PAF on Eliquis twice daily and aspirin daily; H/o bioprosthetic aortic valve, tricuspid valve angioplasty ring, bioprosthetic pulmonary valve - EKG on admission showed A-fib, rate 99 - Most recent echo (11/2023) showed EF 65-70%, mild LVH, borderline dilated RV mildly reduced systolic function, severe biatrial dilation, bioprosthetic AV, moderate mitral regurgitation, tricuspid valve angioplasty ring with severe TR, bioprosthetic pulmonic valve with stenosis, mild pulmonary hypertension, A- fib. - On Eliquis, held in setting of bleeding - Rate controlled with diltiazem (takes at pm) - Continue to monitor (3) URI (upper respiratory infection): Plan: Ongoing x 2 weeks; trialed on Augmentin starting in diarrhea, adjusted to amoxicillin twice daily also resulting in diarrhea and hematochezia. - Continuing to have PND, coughing - No SOB, no chest pain; Wheezing on exam - CXR: Cardiomegaly without acute process - Pt reports occasional choking with inhalers ? trial of neb can be used if needed and pt agreeable Plan HLD- continue pravastatin nightly Dispo: Admit VTE prophylaxis: SCDs for now, will restart a home dose of Eliquis depending on clinical image Code: Full Admission and Anticipated Discharge Date Admission Date: March 19, 2024 Supervising Physician Co-Signing Physician Notes I personally examined the patient and verified gray points of history and exam, discussed case, and agree with decision making and plan documented by Dr. French. Patient evaluated and was eating lunch including chicken breast, mashed potatoes, and veg. Patient states she has not had BM since last night, she denies any pain or nausea at this time. Will ensure patient able to tolerate PO and anticipate discharge tomorrow if she continues to feel well. Subjective Patient seen and evaluated at bedside this morning. No acute events overnight. No episodes of hematochezia overnight. Patient states feeling much better. Remains on clear liquid diet. Review of Systems Review of Systems: reviewed, per HPI Physical Exam Physical Exam: Constitutional: well-appearing, no acute distress HEENT: NCAT, no conjunctival injection CV: regular rhythm, no murmur appreciated, extremities well-perfused, no LE edema Resp: CTABL, no wheezes/rales/rhonchi appreciated, no increased work of breathing GI: soft, nondistended, nontender MSK: no gross deformities appreciated Skin: warm, dry, no rash appreciated Neuro: alert, oriented, no focal neurologic deficit appreciated Results & Data Results & Data Vital Signs (Past 12 Hours) Vital Signs Temp Pulse Pulse Resp BP Pulse Ox O2 Del Method 03/21/24 11:47 36.7 C 81 18 124/71 95 Room Air 03/21/24 07:56 36.7 C 84 18 118/72 Room Air 03/21/24 07:31 Room Air 03/21/24 07:15 80 03/21/24 03:32 37.0 C 104 H 18 124/76 96 Room Air Resident Activity Tracking Resident Involvement: Resident Care Provided Care Provided: Adult Hospital Medicine
[2024-03-21] MEDS: INFLUENZA VACC TS2024-25(65y+)/PF (IIV3) 0.5mL Syr IM ONE (16:20)
[2024-03-22 00:37] VITALS: RESP 18
[2024-03-22 08:02] VITALS: TEMP 98.8; O2SAT 93
[2024-03-22] MEDS: guaiFENesin 600 MG TABCR PO PRN (08:21)
--- NOTE | 2024-03-22 10:02 | Discharge Summary ---
Date of Service March 22, 2024 Admission HPI Per Admitting Provider Patient is a 74-year-old female presenting for hematochezia. ED course: CBC- WBC 10.17, H&H WNL; CMP-potassium 3.4, CO2 34, BUN 19, alk phos 144; C. difficile negative; CXR cardiomegaly without acute process; CTAP with moderate circumferential wall thickening of transverse colon/splenic flexure/proximal to mid descending colon consistent with colitis, groundglass opacities in lower lungs, right nephrolithiasis, no obstruction. Provided with acetaminophen and NSS in ED. Patient 74-year-old female w/ PMHx PAF on anticoagulation (Eliquis) and multiple valvular disorders presented to ED for hematochezia that has waxed and waned over the past 5 days since being on 1 dose of Augmentin, and then respective doses of amoxicillin for URI. States that she had gone to her PCP for ongoing upper respiratory infection symptoms prescribed Augmentin. They are taking 1 dose, noticed that she had loose stool that she requested a change in antibiotic. Was then transition to amoxicillin twice daily and continued to h ave loose stool that initially improved over the weekend. Awoke at 0300 this a.m. with abdominal pain, took Pepto-Bismol. Awoke again this a.m. around 0430 and that is when she noticed the blood in her stool. Notes that she continues to have streaking of blood in the stool as well as some mucus. Mild right and left lower quadrant abdominal pain that she feels is "gas pain" and she has some relief when passing gas. Reports nausea early in course, however not ongoing and no vomiting. Denies fever/chills, chest pain, shortness of breath, constipation, nausea/vomiting, weakness, fatigue, or additional changes. Please see Dr. Vicente's attestation for adjustment/changes to treatment plan. Admission Exam Per Admitting Provider General: No acute distress, well developed. Skin: Warm and dry, without rashes or lesions. No cyanosis or clubbing Head: Normocephalic, atraumatic Eyes: PERRL, conjunctivae clear, sclera non-icteric; EOM intact ENT: External ear and ear canal without swelling; nose atraumatic; wearing mask Neck: Supple, no LAD; no JVD Cardio: Tachycardic, irregularly irregular rhythm, systolic murmur at LUSB, no G/R Resp: Chest wall symmetric, normal respiratory effort; No respiratory distress, no rales or rhonchi, bilateral lower lobe wheezing Abdomen: Soft, symmetric, slight abdominal tenderness throughout lower abdomen; No masses or hepatosplenomegaly MSK: No deformities, strength equal and symmetric; Pulses palpable and equal; No edema. Neuro: Awake, alert; Muscle strength 5/5 bilaterally in UE/LE; Sensation intact bilaterally; CN intact Psych: Appropriate mood and affect; good judgement and insight. Principal Diagnosis Colitis Discharge Exam Constitutional: well-appearing, no acute distress HEENT: NCAT, no conjunctival injection CV: regular rhythm, no murmur appreciated, extremities well-perfused, no LE edema Resp: CTABL, no wheezes/rales/rhonchi appreciated, no increased work of breathing GI: soft, nondistended, nontender MSK: no gross deformities appreciated Skin: warm, dry, no rash appreciated Neuro: alert, oriented, no focal neurologic deficit appreciated Discharge Data Allergies Allergy/AdvReac Type Severity Reaction Status Date / Time amiodarone Allergy Unknown ACUTE RESP Verified 03/09/24 10:54 FAILURE metoprolol AdvReac Intermediate "PASSED Verified 03/09/24 10:54 OUT" AND LITTLE TROUBLE BREATHING oxycodone AdvReac Intermediate NAUSEA Verified 03/09/24 10:54 VOMITING propoxyphene AdvReac Intermediate NAUSEA AND Verified 03/09/24 10:54 VOMITING Consultations 03/19/24 10:36 ED Decision to Admit Stat Ordered Studies 03/19/24 07:53 CT abd pelvis IV con only Stat Hospital Course (1) Colitis: 74 y/o F PMHx Afib on Eliquis, presenting with hematochezia x 1 day following ongoing diarrhea x 5 days related to recent URI tx with antibiotics (Augmentin, Amoxicillin). No rectal pain, never happened before - Recent illness resulting in diarrhea and decreased oral intake, BRBPR x 1 day with lower abdominal pain - C. difficile negative, all other stool studies neg - CTAP- moderate wall thickening and pericolonic stranding of transverse colon/splenic flexure of colon/proximal to mid descending colon consistent with colitis, no bowel obstruction, right nephrolithiasis - Colonoscopy 03/2023- nonbleeding internal hemorrhoids - Hematochezia resolved one day prior to discharge, patient had soft formed bowel movement on day of discharge - Diet was advanced as tolerated, tolerating regular diet on day of discharge - Did not require antibiotics during pt stay (2) PAF (paroxysmal atrial fibrillation): History of PAF on Eliquis twice daily and aspirin daily; H/o bioprosthetic aortic valve, tricuspid valve angioplasty ring, bioprosthetic pulmonary valve Eliquis held throughout hospitalization Restart upon discharge (3) URI (upper respiratory infection): Ongoing x 2 weeks; trialed on Augmentin starting in diarrhea, adjusted to amoxicillin twice daily also resulting in diarrhea and hematochezia. Largely resolved besides lingering mild cough on discharge Plan HLD- continue pravastatin nightly Total Time Total Time Spent Total Time Spent (In Minutes): see attending documentation Discharge Plan Discharge Items Patient Disposition: Home - Self-Care Reason For Visit: HEMATOCHEZIA Discharge Diagnosis: Colitis Condition on Discharge: Good Activity: Resume your previous activity Activity Comment: as tolerated Non-emergency contact: Primary Care Provider Call non-emergency contact if: you have any medication questions and your symptoms worsen Follow-up/Referrals: Omaira Mahajan MD [Primary Care Provider] - 03/26/24 10:00 am Diet: Regular Addtl Attending Provider Instructions: You were admitted to the hospital for diarrhea and blood in your stools found to be a result of a condition called colitis (inflammation of your intestine). This was likely caused by antibiotic use. You were treated with bowel rest and gradual reintroduction of liquids and then solid food as your condition resolved. A discharge summary will be sent to your primary care physician to ensure continuity of care. Please bring this discharge summary with you to your next office appointment so that your provider can review it at that time. Follow-up appointments: Make a follow-up appointment with your PCP within the next week. It is very important that you follow up with them shortly after discharge from the hospital. Keep all your follow-up appointments as already scheduled. If you cannot make an appointment, notify your provider. Take your medications as instructed; do not skip a dose of your medicines. Make sure all of your doctors know every medicine you are taking (including [id number] medicines, vitamins, and supplements). Call your primary care provider before taking any new medicines (including [id number] medicines, vitamins, and supplements), because some of these may interact with your current medications, or may make your symptoms worse. Tell your primary care provider if you cannot afford your medications. CONTACT YOUR PRIMARY CARE PROVIDER if you experience any of the following: Return of diarrhea Abnormal abdominal pain CALL 911 OR GO TO THE EMERGENCY DEPARTMENT if you experience any of the following: Sudden, severe abdominal pain or nausea/vomiting Severe chest pain, or chest pain that radiates (moves) to your jaw or arm Sudden, severe shortness of breath or difficulty breathing Thank you for allowing us to participate in your care. Pending Studies at Discharge: No Stand-Alone Forms: [facility] Medications and DC Order Prescriptions: Continued diltiazem HCl 120 mg capsule,extended release 24hr 120 mg PO DAILY Qty: 90 3RF pravastatin 40 mg tablet 40 mg PO HS Qty: 90 3RF Rx Instructions: TAKE 1 TABLET BY MOUTH DAILY Eliquis 5 mg tablet 5 mg PO BID Qty: 180 3RF Rx Instructions: TAKE 1 TABLET BY MOUTH TWICE A DAY calcium carbonate-vitamin D3 600 mg(1,500mg) -200 unit tablet 1 tab PO BID multivitamin with minerals [Hair,Skin and Nails] Tablet 1 tab PO TID amoxicillin 500 mg capsule 2,000 mg PO ONCE PRN (Reason: DENTAL APPOINTMENTS) Qty: 4 2RF Rx Instructions: Take 30-60 min prior to dental procedure glucosamine-chondroitin [Osteo Bi-Flex] 250-200 mg tablet 1 tab PO BID Rx Instructions: give after food/meal aspirin 81 mg Tablet,Delayed Release (Dr/Ec) 81 mg PO DAILY Discontinued amoxicillin 500 mg capsule 500 mg PO BID 10 Days Qty: 20 0RF Rx Instructions: filled 03/15 20 for 10 day supply Discharge Orders: Discharge Order (Routine); Ordered 03/22/24 Ordered By: Melchor Avila/Other Patient Handouts: Understanding Colitis Admission Data Admit Date/Time: 03/19/24 11:25 Attending Provider: Carla Francis Admit Provider: Carlitos Vicente Primary Care Provider: Omaira Mahajan Other Providers: Carlitos Vicente Other Interventions: Discharge Summary Assessment (RN) Last Done: 03/22/24 10:52 Supervising Physician Co-Signing Physician Notes I personally examined the patient and verified gray points of history and exam, discussed case, and agree with decision making and plan documented by Dr. French. Patient on admission for colitis associated with antibiotic use. Initially she presented with hematochezia, this has resolved. Patient was able to advance diet as tolerated. She was started on Lactobacillus acidophilus. Patient advised to restart her DAPT on discharge, she was reminded of reasons to discontinue, especially if she experiences BRBPR. Patient appears comfortable, lungs clear b/l to auscultation, irregularly irregular rate and rhythm, 1/6 systolic murmur with appreciable valvular click, no acute distress. Patient advised to schedule follow-up with PCP. Resident Activity Tracking Resident Involvement: Resident Care Provided Care Provided: Adult Hospital Medicine
[2024-03-22 10:34] VITALS: BP 113/71; PULSE 106
--- NOTE | 2024-03-23 08:59 | Coding Query ---
CODING QUERY To promote full compliance with coding requirements relating to patient care, provider participation is requested in all cases of office clerk assistant uncertainty. Please assist us with the question(s) below: Coding Question(s): H&P lists Ischemic Colitis. Notes after this list Colitis. Please clarify if this is Ischemic Colitis, Unspec. Colitis or other. Physician's Response(s): antibiotic-induced colitis Thank you Estephanie Jansen Principal Diagnosis: "that condition established after study, to be chiefly responsible for occasioning the admission of the patient to the hospital for care." Co-Existing Principal Diagnosis: "when two or more diagnoses equally meet the criteria for principal diagnosis as determined by the circumstances of admission, diagnostic work up, and/or therapy provided, and the Alphabetic Index, Tabular List, or another coding guideline does not provide sequencing direction, any one of the diagnoses may be sequenced first." "When the physician has documented what appears to be a current diagnosis in the body of the record, but has not included the diagnosis in the final diagnostic statement, the physician should be asked whether the diagnosis should be added." (Source [facility]oding [facility] 2 QTR90. p3-4) APRIL
== END 2024-03-22 11:41 | disposition home or self-care (01) | DRG 394 ==
LOC: ED 07:43 → EDINP 11:25 → SUATTDRO 11:25 → 2N 13:41